=== PATIENT | male | born 1945 | race Caucasian/White ===

== ENCOUNTER 2020-05-30 16:22 | Inpatient (IN) | payer MEDICARE, OTHER ==
[~2020-05-30 16:22] MED LIST: Iopamidol 370 76% 100 ML VIAL ONE
[2020-05-30] MEDS ORDERED: Albuterol 200 PUFF (6.7GM INHALER) ONE (17:44)
[2020-05-30 17:56] LABS: #Lymphocytes 0.4 thou/uL (1.20-3.40); #Monocytes 0.4 thou/uL (0.11-0.59); #Neutrophils 8.6 thou/uL (1.40-6.50); %Basophils 0.1 % (0.0-1.0); %Eosinophils 0.1 % (0.0-10.0); %Lymphocytes 4.1 % (21.0-51.0); %Monocytes 3.9 % (0.0-10.0); %Neutrophils 91.8 % (42.0-75.0); Hemoglobin 14.4 g/dL (14.0-18.0); Mean Corpuscular Volume 97.1 fL (78.0-98.0); Mean Platelet Volume 7.9 fL (7.4-10.4); Platelet Count 223 thou/uL (130-400); RBC Distribution Width 13.2 % (11.5-14.5); Red Blood Cell (RBC) Count 4.49 mill/uL (4.70-6.10); White Blood Cell (WBC) Count 9.4 thou/uL (4.8-10.8)
[2020-05-30 18:18] LABS: ALT (SGPT) 43 U/L (8-55); AST (SGOT) 44 U/L (5-34); Albumin 3.9 g/dL (3.4-4.8); Alkaline Phosphatase 78 U/L (40-110); Anion Gap 19 mmol/L (10-20); BUN (Urea Nitrogen) 30 mg/dL (8.4-25.7); Bilirubin, Total 0.5 mg/dL (0.2-1.2); Calc. Creatinine Clearance 0 mL/min (70-130); Calcium 9.1 mg/dL (7.8-10.44); Carbon Dioxide 21 mmol/L (23-31); Chloride 103 mmol/L (98-107); Globulin 3.2 g/dL (2.4-3.5); Glucose 184 mg/dL (83-110); Potassium 3.8 mmol/L (3.5-5.1); Protein, Total 7.1 g/dL (5.8-8.1); Sodium 139 mmol/L (136-145)
--- NOTE | 2020-05-30 18:42 | RAD ---
PORTABLE UPRIGHT FRONTAL CHEST RADIOGRAPH: Date: 05-30-2020 Comparison: 12-24-14 History: Covid positive patient with difficulty breathing/shortness of breath. FINDINGS: There is no pneumothorax or pleural fluid. Heart and mediastinal contours are stable. There is new di ffuse interstitial opacity with superimposed ground glass opacity within the perihilar regions in bot h lung bases, consistent with the provided history of Covid pneumonia. IMPRESSION: Findings suspicious for bilateral Covid pneumonia. POS: TUSHAR
--- NOTE | 2020-05-30 21:38 | CT ---
CT PULMONARY ANGIOGRAM WITH IV CONTRAST AND 3D MIP RECONSTRUCTIONS: Date: 05-30-2020 PROVIDED CLINICAL HISTORY: Shortness of breath, Covid positive. FINDINGS: There is no evidence for central or segmental pulmonary embolus. Vascular calcification including cor onary calcium is demonstrated. There is a 3 cm right thyroid lobe hypodense nodule. There is extensive bilateral ground glass opacity with associated interstitial thickening, predominat imelda involving the left lung. There is no evidence for pleural fluid or pneumothorax. There is no evid ence for thoracic lymph node enlargement. The airway appears patent and of normal caliber. The visualized portions of the upper abdomen demonstrate no acute abnormality. The osseous structures demonstrate no concerning lytic or blastic lesions. IMPRESSION: 1. No evidence for central or segmental pulmonary embolus. 2. Pulmonary parenchymal findings typical but not specific for Covid pneumonia. 3. Right thyroid nodule, follow up ultrasound recommended. POS: JL
[2020-05-31] MEDS ORDERED: Ondansetron PF 4 MG/2 ML Vial IVP PRN (00:19)
[2020-05-31] MEDS ORDERED: Calcium Carbonate 500 MG ChewTAB PO PRN (00:19)
[2020-05-31] MEDS ORDERED: Acetaminophen 650 MG Suppository PR PRN (00:19)
[2020-05-31] MEDS ORDERED: Guaifenesin DM 100-10/5 ML UDCUP PO PRN (00:19)
[2020-05-31] MEDS ORDERED: Ondansetron ODT 4 MG TAB PO PRN (00:19)
--- NOTE | 2020-05-31 00:23 | PDOC.HHP ---
Hospitalist HPI - History of Present Illness dyspnea History of Present Illness: Case of an 74y/o male with a pmhx of htn who was diagnosed with covid 19 yesterday after a few days of symptoms, that comes to hospital today due to worsening symptoms. Patient states that he has had some non productive cough w ith some mild shortness of breath for the past 4 days. Patient states that his symptoms have worsened today. he check his oxygen saturations on his home pulse ox and found his saturation to be 89%, for which he decided to comes to hospital for evaluation. Hospitalist ROS - Review of Systems All other systems reviewed; all pertinent +/- noted in HPI/Subj Hospitalist History - Past Surgical History Past Surgical History: reports: Total Hip Replacement - Family History Family History: reports: no pertinent history - Social History Smoking Status: Current every day smoker Alcohol: reports: Occassional Drugs: reports: none Living Situation: With Family - Exam General Appearance: NAD, awake alert Eye: PERRL, anicteric sclera ENT: normocephalic atraumatic, no oropharyngeal lesions Neck: supple, symmetric, no JVD Heart: RRR, no murmur, no gallops Respiratory: CTAB, no wheezes, no rales, no ronchi, tachypneic Gastrointestinal: soft, non-tender, non-distended Extremities: no cyanosis, no clubbing, no edema Skin: normal turgor, no lesions, no rashes Neurological: cranial nerve grossly intact, normal sensation to touch, no weakness Musculoskeletal: normal tone, normal strength Psychiatric: normal affect, normal behavior, A&O x 3 Hospitalist Results - Labs Result Diagrams: 05/30/20 17:45 05/30/20 17:45 Lab results: WBC 9.4 thou/uL (4.8-10.8) 05/30/20 17:45 Hgb 14.4 g/dL (14.0-18.0) 05/30/20 17:45 Hct 43.6 % (42.0-52.0) 05/30/20 17:45 MCV 97.1 fL (78.0-98.0) 05/30/20 17:45 Plt Count 223 thou/uL (130-400) 05/30/20 17:45 Neutrophils % 91.8 % (42.0-75.0) H 05/30/20 17:45 Sodium 139 mmol/L (136-145) 05/30/20 17:45 Potassium 3.8 mmol/L (3.5-5.1) 05/30/20 17:45 Chloride 103 mmol/L (98-107) 05/30/20 17:45 Carbon Dioxide 21 mmol/L (23-31) L 05/30/20 17:45 BUN 30 mg/dL (8.4-25.7) H 05/30/20 17:45 Creatinine 1.15 mg/dL (0.7-1.3) 05/30/20 17:45 Glucose 184 mg/dL (83-110) H 05/30/20 17:45 Calcium 9.1 mg/dL (7.8-10.44) 05/30/20 17:45 Total Bilirubin 0.5 mg/dL (0.2-1.2) 05/30/20 17:45 AST 44 U/L (5-34) H 05/30/20 17:45 ALT 43 U/L (8-55) 05/30/20 17:45 Alkaline Phosphatase 78 U/L (40-110) 05/30/20 17:45 Troponin I Less than 0.010 ng/mL (< 0.028) 05/30/20 17:45 Serum Total Protein 7.1 g/dL (5.8-8.1) 05/30/20 17:45 Albumin 3.9 g/dL (3.4-4.8) 05/30/20 17:45 Hospitalist H&P A/P - Problem (1) Pneumonia due to COVID-19 virus Code(s): U07.1 - COVID-19; J12.89 - OTHER VIRAL PNEUMONIA Status: Acute (2) Acute respiratory failure Code(s): J96.00 - ACUTE RESPIRATORY FAILURE, UNSP W HYPOXIA OR HYPERCAPNIA Status: Acute (3) HTN (hypertension) Code(s): I10 - ESSENTIAL (PRIMARY) HYPERTENSION Status: Acute - Plan Plan: 74y/o male with the stated pmhx who presents with worsening covid 19 symptoms covid 19 pneumonia - cta + cxr consistent with covid 19 pnuemonia - positive test yesterday - will start decadron ivd - continue with vit c d and zinc - isolation protocol acute respi failure - likely secondary to above - 02 supplementation - wean as tolerated htn - continue home meds
[2020-05-31] MEDS ORDERED: Acetaminophen 325 MG TAB ONE (01:40)
[2020-05-31] MEDS: Acetaminophen 325 MG TAB PO PRN ×2 (01:44→08:59)
[2020-05-31 04:37] VITALS: BMI 34.2
[2020-05-31 07:52] LABS: Hemoglobin 13.9 g/dL (14.0-18.0); Mean Corpuscular HGB CONC 34.5 g/dL (32.0-36.0); Mean Corpuscular Hemoglobin 33.9 pg (27.0-31.0); Mean Corpuscular Volume 98.3 fL (78.0-98.0); Mean Platelet Volume 7.9 fL (7.4-10.4); Platelet Count 240 thou/uL (130-400); RBC Distribution Width 13.3 % (11.5-14.5); Red Blood Cell (RBC) Count 4.11 mill/uL (4.70-6.10); White Blood Cell (WBC) Count 10.3 thou/uL (4.8-10.8)
[2020-05-31 07:54] LABS: ALT (SGPT) 48 U/L (8-55); AST (SGOT) 44 U/L (5-34); Albumin 3.6 g/dL (3.4-4.8); Alkaline Phosphatase 72 U/L (40-110); Anion Gap 16 mmol/L (10-20); BUN (Urea Nitrogen) 25 mg/dL (8.4-25.7); Bilirubin, Total 0.6 mg/dL (0.2-1.2); Calc. Creatinine Clearance 97 mL/min (70-130); Calcium 9.3 mg/dL (7.8-10.44); Carbon Dioxide 25 mmol/L (23-31); Chloride 104 mmol/L (98-107); Globulin 3.7 g/dL (2.4-3.5); Glucose 158 mg/dL (83-110); Potassium 3.6 mmol/L (3.5-5.1); Protein, Total 7.3 g/dL (5.8-8.1); Sodium 141 mmol/L (136-145)
[2020-05-31] MEDS: Ascorbic Acid 500 mg Chewable Tablet PO SCH (08:46)
[2020-05-31] MEDS: Zinc Sulfate 220 MG CAP PO SCH (08:46)
[2020-05-31] MEDS: Dexamethasone 4 mg/ml Vial SLOW IVP SCH (08:46)
[2020-05-31] MEDS: Enoxaparin Sodium 40 MG/0.4 ML SYRINGE SC SCH (08:46)
[2020-05-31 09:08] LABS: Band 27 % (5-11); Lymphocytes 7 % (21-51); MDiff Complete? YES; Monocytes 1 % (0-10); Neutrophil 64 % (42-75); Platelet Morphology Comment Appears Adequate; RBC Morphology Normal; Reactive Lymphocytes 1 % (0-10)
[2020-05-31] MEDS: Cholecalciferol (Vitamin D3) 400 UNITS TAB PO SCH (11:22)
--- NOTE | 2020-05-31 16:53 | PDOC.HOSPP ---
- Subjective Encounter Date: 05/31/20 Encounter Time: 16:51 Subjective: Mr. Wiggins was seen today in follow-up of COVID pneumonia. He says he is breathing a little better. He says his symptoms have been present for about 11- 12 days, but got worse over the past 3 days. - Objective Vital Signs & Weight: Vital Signs (12 hours) Temp Pulse Resp BP BP Pulse Ox 05/31/20 12:00 98.2 F 87 22 H 125/73 91 L 05/31/20 08:59 100.9 F H 05/31/20 08:00 100.9 F H 89 24 H 164/79 H 92 L Weight Weight 260 lb Result Diagrams: 05/31/20 06:36 05/31/20 06:36 Hospitalist ROS - Medication Medications: Active Medications Generic Name Dose Route Start Last Admin Trade Name Freq PRN Reason Stop Dose Admin Acetaminophen 650 mg 05/31/20 00:19 05/31/20 08:59 Acetaminophen 325 Mg Tab PO 650 mg Q4H PRN Administration Headache/Fever/Mild Pain (1-3) Ascorbic Acid 1,000 mg 05/31/20 09:00 05/31/20 08:46 Ascorbic Acid 500 Mg Chewable Tablet PO 1,000 mg DAILY ADE Administration Cholecalciferol 400 units 05/31/20 09:00 05/31/20 11:22 Cholecalciferol (Vitamin D3) 400 Units Tab PO Not Given DAILY ADE Dexamethasone 6 mg 05/31/20 09:00 05/31/20 08:46 Dexamethasone 4 Mg/Ml Vial SLOW IVP 6 mg DAILY ADE Administration Enoxaparin Sodium 40 mg 05/31/20 09:00 05/31/20 08:46 Enoxaparin Sodium 40 Mg/0.4 Ml Syringe SC 40 mg 0900 ADE Administration Zinc Sulfate 220 mg 05/31/20 09:00 05/31/20 08:46 Zinc Sulfate 220 Mg Cap PO 220 mg DAILY ADE Administration - Exam Eye: PERRL, anicteric sclera Heart: RRR, no murmur, no gallops, no rubs, normal peripheral pulses Respiratory: no wheezes, no ronchi, rales (+ faint rales in the bases) Gastrointestinal: soft, non-tender, non-distended, normal bowel sounds, no palpable masses, no hepatomegaly Extremities: no cyanosis, no edema (+ good distal d.p. pulses bilaterally no lesions) Hosp A/P (1) Pneumonia due to COVID-19 virus Code(s): U07.1 - COVID-19; J12.89 - OTHER VIRAL PNEUMONIA Status: Acute (2) Acute respiratory failure with hypoxemia Code(s): J96.01 - ACUTE RESPIRATORY FAILURE WITH HYPOXIA Status: Acute (3) HTN (hypertension) Code(s): I10 - ESSENTIAL (PRIMARY) HYPERTENSION Status: Acute - Plan * Acute respiratory failure due to COVID- continue Decadron. He is out of the time window for Remdesivir * Consider Convalescent plasma should his condition worsen * Will monitor inflammatory markers * HTN- will re-start his home medications * DVT prophylaxis
[2020-05-31] MEDS: Carvedilol 25 MG TAB PO SCH (20:14)
[2020-06-01 07:56] LABS: Anion Gap 14 mmol/L (10-20); BUN (Urea Nitrogen) 23 mg/dL (8.4-25.7); CRP (Inflammatory) 18.71 mg/dL (= or < 0.5); Calc. Creatinine Clearance 125 mL/min (70-130); Calcium 8.5 mg/dL (7.8-10.44); Carbon Dioxide 24 mmol/L (23-31); Chloride 104 mmol/L (98-107); Glucose 132 mg/dL (83-110); Potassium 3.5 mmol/L (3.5-5.1); Sodium 138 mmol/L (136-145)
[2020-06-01 07:58] LABS: #Lymphocytes 0.3 thou/uL (1.20-3.40); #Monocytes 0.4 thou/uL (0.11-0.59); #Neutrophils 10.6 thou/uL (1.40-6.50); %Basophils 0.1 % (0.0-1.0); %Eosinophils 0.1 % (0.0-10.0); %Monocytes 3.6 % (0.0-10.0); %Neutrophils 93.2 % (42.0-75.0); Hemoglobin 12.1 g/dL (14.0-18.0); Mean Corpuscular HGB CONC 34.3 g/dL (32.0-36.0); Mean Corpuscular Hemoglobin 33.9 pg (27.0-31.0); Mean Corpuscular Volume 98.6 fL (78.0-98.0); Mean Platelet Volume 7.8 fL (7.4-10.4); Platelet Count 229 thou/uL (130-400); RBC Distribution Width 13.1 % (11.5-14.5); Red Blood Cell (RBC) Count 3.57 mill/uL (4.70-6.10); White Blood Cell (WBC) Count 11.4 thou/uL (4.8-10.8)
[2020-06-01] MEDS: Dexamethasone 4 mg/ml Vial SLOW IVP SCH (08:01)
[2020-06-01] MEDS: Enoxaparin Sodium 40 MG/0.4 ML SYRINGE SC SCH (08:01)
[2020-06-01] MEDS: Cholecalciferol (Vitamin D3) 400 UNITS TAB PO SCH (08:01)
[2020-06-01] MEDS: Aspirin 81 mg Enteric Coated Tablet PO SCH (08:01)
[2020-06-01] MEDS: Ascorbic Acid 500 mg Chewable Tablet PO SCH (08:01)
[2020-06-01] MEDS: Multivit, Therapeutic 1 TAB PO SCH (08:02)
[2020-06-01] MEDS: Carvedilol 25 MG TAB PO SCH ×2 (08:02→20:50)
[2020-06-01] MEDS: Zinc Sulfate 220 MG CAP PO SCH (08:02)
[2020-06-01] MEDS: Amlodipine 10 MG TAB PO SCH (08:02)
[2020-06-01] MEDS ORDERED: Non-Formulary Item 1 EACH (Lisinopril [Lisinopril] 40 MG Tablet) PO SCH (09:00)
[2020-06-01] MEDS: Lisinopril 20 MG TAB PO SCH (09:46)
--- NOTE | 2020-06-01 13:27 | PDOC.HOSPP ---
- Subjective Encounter Date: 06/01/20 Encounter Time: 13:25 Subjective: dry cough. on high flow O2. dyspneic with exertion - Objective Vital Signs & Weight: Vital Signs (12 hours) Temp Pulse Resp BP BP Pulse Ox 06/01/20 09:46 162/104 H 06/01/20 08:02 76 06/01/20 08:00 98.7 F 67 16 155/69 H 92 L 06/01/20 04:00 99.5 F 76 16 145/66 H 92 L 06/01/20 03:15 92 L Weight Weight 260 lb I&O: 05/31/20 06/01/20 06/02/20 06:59 06:59 06:59 Intake Total 800 480 Output Total 600 Balance 200 480 Result Diagrams: 06/01/20 07:13 06/01/20 07:13 Hospitalist ROS - Medication Medications: Active Medications Generic Name Dose Route Start Last Admin Trade Name Freq PRN Reason Stop Dose Admin Acetaminophen 650 mg 05/31/20 00:19 05/31/20 08:59 Acetaminophen 325 Mg Tab PO 650 mg Q4H PRN Administration Headache/Fever/Mild Pain (1-3) Amlodipine Besylate 10 mg 06/01/20 09:00 06/01/20 08:02 Amlodipine 10 Mg Tab PO 10 mg DAILY ADE Administration Ascorbic Acid 1,000 mg 05/31/20 09:00 06/01/20 08:01 Ascorbic Acid 500 Mg Chewable Tablet PO 1,000 mg DAILY ADE Administration Aspirin 81 mg 06/01/20 09:00 06/01/20 08:01 Aspirin 81 Mg Enteric Coated Tablet PO 81 mg DAILY ADE Administration Carvedilol 25 mg 05/31/20 21:00 06/01/20 08:02 Carvedilol 25 Mg Tab PO 25 mg BID ADE Administration Cholecalciferol 400 units 05/31/20 09:00 06/01/20 08:01 Cholecalciferol (Vitamin D3) 400 Units Tab PO 400 units DAILY ADE Administration Dexamethasone 6 mg 05/31/20 09:00 06/01/20 08:01 Dexamethasone 4 Mg/Ml Vial SLOW IVP 6 mg DAILY ADE Administration Enoxaparin Sodium 40 mg 05/31/20 09:00 06/01/20 08:01 Enoxaparin Sodium 40 Mg/0.4 Ml Syringe SC 40 mg 09 ADE Administration Lisinopril 40 mg 06/01/20 09:00 06/01/20 09:46 Lisinopril 20 Mg Tab PO 40 mg DAILY ADE Administration Multivitamins 1 tab 06/01/20 09:00 06/01/20 08:02 Multivit, Therapeutic 1 Tab PO 1 tab DAILY ADE Administration Ondansetron HCl 4 mg 05/31/20 00:19 06/01/20 00:32 Ondansetron Odt 4 Mg Tab PO 4 mg Q6H PRN Administration Nausea/Vomiting Zinc Sulfate 220 mg 05/31/20 09:00 06/01/20 08:02 Zinc Sulfate 220 Mg Cap PO 220 mg DAILY ADE Administration - Exam General Appearance: awake alert Neck: no JVD Heart: RRR, no murmur Respiratory - other findings: coarse BS. post rales Gastrointestinal: soft, non-tender, normal bowel sounds Extremities: no edema Hosp A/P (1) Pneumonia due to COVID-19 virus Code(s): U07.1 - COVID-19; J12.89 - OTHER VIRAL PNEUMONIA Status: Acute (2) Acute respiratory failure with hypoxemia Code(s): J96.01 - ACUTE RESPIRATORY FAILURE WITH HYPOXIA Status: Acute (3) HTN (hypertension) Code(s): I10 - ESSENTIAL (PRIMARY) HYPERTENSION Status: Acute Qualifiers: Hypertension type: essential hypertension Qualified Code(s): I10 - Essential (primary) hypertension - Plan cont iv decadron taper O2 as able cont loveox cont amlodipine, coreg
[2020-06-02] MEDS: Enoxaparin Sodium 40 MG/0.4 ML SYRINGE SC SCH (07:47)
[2020-06-02] MEDS: Zinc Sulfate 220 MG CAP PO SCH (07:47)
[2020-06-02] MEDS: Amlodipine 10 MG TAB PO SCH (07:47)
[2020-06-02] MEDS: Aspirin 81 mg Enteric Coated Tablet PO SCH (07:47)
[2020-06-02] MEDS: Cholecalciferol (Vitamin D3) 400 UNITS TAB PO SCH (07:47)
[2020-06-02] MEDS: Dexamethasone 4 mg/ml Vial SLOW IVP SCH (07:48)
[2020-06-02] MEDS: Ascorbic Acid 500 mg Chewable Tablet PO SCH (07:48)
[2020-06-02] MEDS: Carvedilol 25 MG TAB PO SCH ×2 (07:48→20:15)
[2020-06-02] MEDS: Multivit, Therapeutic 1 TAB PO SCH (07:48)
[2020-06-02] MEDS: Lisinopril 20 MG TAB PO SCH (07:48)
--- NOTE | 2020-06-02 09:46 | PDOC.HOSPP ---
- Subjective Encounter Date: 06/02/20 Encounter Time: 09:43 Subjective: sob , cough improved - Objective Vital Signs & Weight: Vital Signs (12 hours) Temp Pulse Resp BP BP BP Pulse Ox 06/02/20 08:00 98.0 F 61 20 138/66 92 L 06/02/20 07:48 162/104 H 06/02/20 07:47 56 L 06/02/20 04:00 98.1 F 56 L 28 H 143/72 H 93 L 06/02/20 00:29 92 L Weight Weight 260 lb I&O: 06/01/20 06/02/20 06/03/20 06:59 06:59 06:59 Intake Total 800 720 240 Output Total 600 Balance 200 720 240 Result Diagrams: 06/01/20 07:13 06/01/20 07:13 Hospitalist ROS - Medication Medications: Active Medications Generic Name Dose Route Start Last Admin Trade Name Freq PRN Reason Stop Dose Admin Acetaminophen 650 mg 05/31/20 00:19 05/31/20 08:59 Acetaminophen 325 Mg Tab PO 650 mg Q4H PRN Administration Headache/Fever/Mild Pain (1-3) Amlodipine Besylate 10 mg 06/01/20 09:00 06/02/20 07:47 Amlodipine 10 Mg Tab PO 10 mg DAILY ADE Administration Ascorbic Acid 1,000 mg 05/31/20 09:00 06/02/20 07:48 Ascorbic Acid 500 Mg Chewable Tablet PO 1,000 mg DAILY ADE Administration Aspirin 81 mg 06/01/20 09:00 06/02/20 07:47 Aspirin 81 Mg Enteric Coated Tablet PO 81 mg DAILY ADE Administration Carvedilol 25 mg 05/31/20 21:00 06/02/20 07:48 Carvedilol 25 Mg Tab PO 25 mg BID ADE Administration Cholecalciferol 400 units 05/31/20 09:00 06/02/20 07:47 Cholecalciferol (Vitamin D3) 400 Units Tab PO 400 units DAILY ADE Administration Dexamethasone 6 mg 05/31/20 09:00 06/02/20 07:48 Dexamethasone 4 Mg/Ml Vial SLOW IVP 6 mg DAILY ADE Administration Enoxaparin Sodium 40 mg 05/31/20 09:00 06/02/20 07:47 Enoxaparin Sodium 40 Mg/0.4 Ml Syringe SC 40 mg 09 ADE Administration Lisinopril 40 mg 06/01/20 09:00 06/02/20 07:48 Lisinopril 20 Mg Tab PO 40 mg DAILY ADE Administration Multivitamins 1 tab 06/01/20 09:00 06/02/20 07:48 Multivit, Therapeutic 1 Tab PO 1 tab DAILY ADE Administration Ondansetron HCl 4 mg 05/31/20 00:19 06/01/20 00:32 Ondansetron Odt 4 Mg Tab PO 4 mg Q6H PRN Administration Nausea/Vomiting Zinc Sulfate 220 mg 05/31/20 09:00 06/02/20 07:47 Zinc Sulfate 220 Mg Cap PO 220 mg DAILY ADE Administration - Exam General Appearance: awake alert Neck: no JVD Heart: RRR, no murmur Respiratory - other findings: good ant BS, post rales Gastrointestinal: soft, normal bowel sounds Extremities: no edema Hosp A/P (1) Pneumonia due to COVID-19 virus Code(s): U07.1 - COVID-19; J12.89 - OTHER VIRAL PNEUMONIA Status: Acute (2) Acute respiratory failure with hypoxemia Code(s): J96.01 - ACUTE RESPIRATORY FAILURE WITH HYPOXIA Status: Acute (3) HTN (hypertension) Code(s): I10 - ESSENTIAL (PRIMARY) HYPERTENSION Status: Acute Qualifiers: Hypertension type: essential hypertension Qualified Code(s): I10 - Essential (primary) hypertension - Plan cont iv decadron taper O2 as able. still requiring high flow O2 cont loveox cont amlodipine, coreg
[2020-06-02] MEDS: Acetaminophen 325 MG TAB PO PRN (14:42)
[2020-06-03] MEDS: Amlodipine 10 MG TAB PO SCH (07:49)
[2020-06-03] MEDS: Aspirin 81 mg Enteric Coated Tablet PO SCH (07:49)
[2020-06-03] MEDS: Carvedilol 25 MG TAB PO SCH ×2 (07:49→20:26)
[2020-06-03] MEDS: Cholecalciferol (Vitamin D3) 400 UNITS TAB PO SCH (07:49)
[2020-06-03] MEDS: Lisinopril 20 MG TAB PO SCH (07:50)
[2020-06-03] MEDS: Zinc Sulfate 220 MG CAP PO SCH (07:50)
[2020-06-03] MEDS: Ascorbic Acid 500 mg Chewable Tablet PO SCH (07:50)
[2020-06-03] MEDS: Dexamethasone 4 mg/ml Vial SLOW IVP SCH (07:51)
[2020-06-03] MEDS: Multivit, Therapeutic 1 TAB PO SCH (07:51)
[2020-06-03] MEDS: Enoxaparin Sodium 40 MG/0.4 ML SYRINGE SC SCH (07:54)
[2020-06-03] MEDS ORDERED: Azithromycin 250 MG TAB PO SCH (11:30)
--- NOTE | 2020-06-03 11:35 | PDOC.HOSPP ---
- Subjective Encounter Date: 06/03/20 Encounter Time: 11:23 Subjective: cough, yellow sputum, strings of blood. ne fever, chills - Objective Vital Signs & Weight: Vital Signs (12 hours) Temp Pulse Resp BP BP BP Pulse Ox 06/03/20 08:00 98.4 F 61 20 158/72 H 92 L 06/03/20 07:50 162/104 H 06/03/20 07:49 50 L 06/03/20 04:00 97.6 F 50 L 20 124/57 L 93 L 06/03/20 00:00 97.7 F 50 L 22 H 158/80 H 90 L Weight Weight 260 lb I&O: 06/02/20 06/03/20 06/04/20 06:59 06:59 06:59 Intake Total 720 1720 240 Output Total 900 Balance 720 820 240 Result Diagrams: 06/01/20 07:13 06/01/20 07:13 Hospitalist ROS - Medication Medications: Active Medications Generic Name Dose Route Start Last Admin Trade Name Freq PRN Reason Stop Dose Admin Acetaminophen 650 mg 05/31/20 00:19 06/02/20 14:42 Acetaminophen 325 Mg Tab PO 650 mg Q4H PRN Administration Headache/Fever/Mild Pain (1-3) Amlodipine Besylate 10 mg 06/01/20 09:00 06/03/20 07:49 Amlodipine 10 Mg Tab PO 10 mg DAILY ADE Administration Ascorbic Acid 1,000 mg 05/31/20 09:00 06/03/20 07:50 Ascorbic Acid 500 Mg Chewable Tablet PO 1,000 mg DAILY ADE Administration Aspirin 81 mg 06/01/20 09:00 06/03/20 07:49 Aspirin 81 Mg Enteric Coated Tablet PO 81 mg DAILY ADE Administration Calcium Carbonate 1,000 mg 05/31/20 00:19 06/02/20 20:15 Calcium Carbonate 500 Mg Chewtab PO 1,000 mg Q4H PRN Administration Heartburn or Indigestion Carvedilol 25 mg 05/31/20 21:00 06/03/20 07:49 Carvedilol 25 Mg Tab PO 25 mg BID ADE Administration Cholecalciferol 400 units 05/31/20 09:00 06/03/20 07:49 Cholecalciferol (Vitamin D3) 400 Units Tab PO 400 units DAILY ADE Administration Dexamethasone 6 mg 05/31/20 09:00 06/03/20 07:51 Dexamethasone 4 Mg/Ml Vial SLOW IVP 6 mg DAILY ADE Administration Enoxaparin Sodium 40 mg 05/31/20 09:00 06/03/20 07:54 Enoxaparin Sodium 40 Mg/0.4 Ml Syringe SC 40 mg 0900 ADE Administration Lisinopril 40 mg 06/01/20 09:00 06/03/20 07:50 Lisinopril 20 Mg Tab PO 40 mg DAILY ADE Administration Multivitamins 1 tab 06/01/20 09:00 06/03/20 07:51 Multivit, Therapeutic 1 Tab PO 1 tab DAILY ADE Administration Ondansetron HCl 4 mg 05/31/20 00:19 06/01/20 00:32 Ondansetron Odt 4 Mg Tab PO 4 mg Q6H PRN Administration Nausea/Vomiting Zinc Sulfate 220 mg 05/31/20 09:00 06/03/20 07:50 Zinc Sulfate 220 Mg Cap PO 220 mg DAILY ADE Administration - Exam General Appearance: awake alert Neck: no JVD Heart: RRR, no murmur Respiratory - other findings: fine rales bilat Gastrointestinal: soft, normal bowel sounds Extremities: no edema Hosp A/P (1) Pneumonia due to COVID-19 virus Code(s): U07.1 - COVID-19; J12.89 - OTHER VIRAL PNEUMONIA Status: Acute (2) Acute respiratory failure with hypoxemia Code(s): J96.01 - ACUTE RESPIRATORY FAILURE WITH HYPOXIA Status: Acute (3) HTN (hypertension) Code(s): I10 - ESSENTIAL (PRIMARY) HYPERTENSION Status: Acute Qualifiers: Hypertension type: essential hypertension Qualified Code(s): I10 - Essential (primary) hypertension - Plan 1. covid-cont iv decadron, lovenox 2. acute resp failure-taper O2 as able. still requiring high flow O2 3. cont amlodipine, coreg 4. add zithromax, tessalom 5. CBC, BMP
[2020-06-03] MEDS: Benzonatate 100 MG CAP PO SCH ×2 (15:07→20:26)
[2020-06-03 16:41] LABS: Anion Gap 16 mmol/L (10-20); BUN (Urea Nitrogen) 34 mg/dL (8.4-25.7); Calc. Creatinine Clearance 107 mL/min (70-130); Calcium 9.1 mg/dL (7.8-10.44); Carbon Dioxide 23 mmol/L (23-31); Chloride 104 mmol/L (98-107); Glucose 284 mg/dL (83-110); Potassium 4.3 mmol/L (3.5-5.1); Sodium 139 mmol/L (136-145)
[2020-06-03 16:50] LABS: Band 44 % (5-11); Hemoglobin 13.9 g/dL (14.0-18.0); Lymphocytes 2 % (21-51); MDiff Complete? YES; Mean Corpuscular HGB CONC 33.5 g/dL (32.0-36.0); Mean Corpuscular Hemoglobin 32.7 pg (27.0-31.0); Mean Corpuscular Volume 97.8 fL (78.0-98.0); Mean Platelet Volume 8.2 fL (7.4-10.4); Monocytes 2 % (0-10); Neutrophil 52 % (42-75); Platelet Count 340 thou/uL (130-400); Platelet Morphology Comment Appears Adequate; RBC Distribution Width 13.1 % (11.5-14.5); RBC Morphology Normal; Red Blood Cell (RBC) Count 4.25 mill/uL (4.70-6.10); White Blood Cell (WBC) Count 9.8 thou/uL (4.8-10.8)
[2020-06-03] MEDS: Acetaminophen 325 MG TAB PO PRN (20:43)
[2020-06-04] MEDS: Enoxaparin Sodium 40 MG/0.4 ML SYRINGE SC SCH (08:35)
[2020-06-04] MEDS: Benzonatate 100 MG CAP PO SCH ×3 (08:36→19:37)
[2020-06-04] MEDS: Ascorbic Acid 500 mg Chewable Tablet PO SCH (08:36)
[2020-06-04] MEDS: Aspirin 81 mg Enteric Coated Tablet PO SCH (08:36)
[2020-06-04] MEDS: Cholecalciferol (Vitamin D3) 400 UNITS TAB PO SCH (08:36)
[2020-06-04] MEDS: Carvedilol 25 MG TAB PO SCH ×2 (08:36→19:37)
[2020-06-04] MEDS: Zinc Sulfate 220 MG CAP PO SCH (08:36)
[2020-06-04] MEDS: Multivit, Therapeutic 1 TAB PO SCH (08:36)
[2020-06-04] MEDS: Amlodipine 10 MG TAB PO SCH (08:37)
[2020-06-04] MEDS: Lisinopril 20 MG TAB PO SCH (08:37)
[2020-06-04] MEDS: Dexamethasone 4 mg/ml Vial SLOW IVP SCH (08:39)
--- NOTE | 2020-06-04 10:14 | PDOC.HOSPP ---
- Subjective Encounter Date: 06/04/20 Encounter Time: 10:12 Subjective: Patient reports he is feeling the same as yesterday, no significant improvement with his breathing but no worsening. States he feels his nose/head are stuffed. Denies any chest pain. Occasional cough. Denies any fevers. No issues overnight. - Objective Vital Signs & Weight: Vital Signs (12 hours) Temp Pulse Resp BP BP Pulse Ox 06/04/20 08:00 98.0 F 53 L 20 157/71 H 93 L 06/04/20 03:52 97.7 F 51 L 18 155/75 H 94 L 06/04/20 00:03 90 L 06/04/20 00:00 97.9 F 75 20 124/62 94 L Weight Weight 260 lb I&O: 06/03/20 06/04/20 06/05/20 06:59 06:59 06:59 Intake Total 1720 1720 Output Total 900 750 Balance 820 970 Result Diagrams: 06/03/20 16:11 06/03/20 16:11 Hospitalist ROS - Review of Systems Constitutional: denies: fever, chills, sweats, weakness, malaise, other Eyes: denies: pain, vision change, conjunctivae inflammation, eyelid inflammation, redness, other ENT: reports: nose congestion Respiratory: reports: cough, shortness of breath. denies: dry, hemoptysis, SOB with excertion, pleuritic pain, sputum, wheezing, other Cardiovascular: denies: chest pain, palpitations, orthopnea, paroxysmal noc. dyspnea, edema, light headedness, other Gastrointestinal: denies: nausea, vomiting, abdominal pain, diarrhea, constipation, melena, hematochezia, other Genitourinary: denies: dysuria, frequency, incontinence, hematuria, retention, other Musculoskeletal: denies: neck pain, shoulder pain, arm pain, back pain, hand pain, leg pain, foot pain, other Skin: denies: rash, lesions, doreen, bruising, other Neurological: denies: weakness, numbness, incoordination, change in speech, confusion, seizures, other - Medication Medications: Active Medications Generic Name Dose Route Start Last Admin Trade Name Freq PRN Reason Stop Dose Admin Acetaminophen 650 mg 05/31/20 00:19 06/03/20 20:43 Acetaminophen 325 Mg Tab PO 650 mg Q4H PRN Administration Headache/Fever/Mild Pain (1-3) Amlodipine Besylate 10 mg 06/01/20 09:00 06/04/20 08:37 Amlodipine 10 Mg Tab PO 10 mg DAILY [facility] Administration Ascorbic Acid 1,000 mg 05/31/20 09:00 06/04/20 08:36 Ascorbic Acid 500 Mg Chewable Tablet PO 1,000 mg DAILY [facility] Administration Aspirin 81 mg 06/01/20 09:00 06/04/20 08:36 Aspirin 81 Mg Enteric Coated Tablet PO 81 mg DAILY [facility] Administration Benzonatate 100 mg 06/03/20 15:00 06/04/20 08:36 Benzonatate 100 Mg Cap PO 100 mg TID [facility] Administration Calcium Carbonate 1,000 mg 05/31/20 00:19 06/02/20 20:15 Calcium Carbonate 500 Mg Chewtab PO 1,000 mg Q4H PRN Administration Heartburn or Indigestion Carvedilol 25 mg 05/31/20 21:00 06/04/20 08:36 Carvedilol 25 Mg Tab PO 25 mg BID [facility] Administration Cholecalciferol 400 units 05/31/20 09:00 06/04/20 08:36 Cholecalciferol (Vitamin D3) 400 Units Tab PO 400 units DAILY [facility] Administration Dexamethasone 6 mg 05/31/20 09:00 06/04/20 08:39 Dexamethasone 4 Mg/Ml Vial SLOW IVP 6 mg DAILY [facility] Administration Enoxaparin Sodium 40 mg 05/31/20 09:00 06/04/20 08:35 Enoxaparin Sodium 40 Mg/0.4 Ml Syringe SC 40 mg 09 [facility] Administration Lisinopril 40 mg 06/01/20 09:00 06/04/20 08:37 Lisinopril 20 Mg Tab PO 40 mg DAILY [facility] Administration Multivitamins 1 tab 06/01/20 09:00 06/04/20 08:36 Multivit, Therapeutic 1 Tab PO 1 tab DAILY [facility] Administration Ondansetron HCl 4 mg 05/31/20 00:19 06/01/20 00:32 Ondansetron Odt 4 Mg Tab PO 4 mg Q6H PRN Administration Nausea/Vomiting Zinc Sulfate 220 mg 05/31/20 09:00 06/04/20 08:36 Zinc Sulfate 220 Mg Cap PO 220 mg DAILY [facility] Administration - Exam General Appearance: NAD, awake alert Eye: PERRL, anicteric sclera ENT: normocephalic atraumatic, no oropharyngeal lesions, moist mucosa Neck: supple, symmetric, no lymphadenopathy Heart: RRR, normal peripheral pulses Respiratory: CTAB, no wheezes, no rales, no ronchi, normal chest expansion Gastrointestinal: soft (obese), non-tender, non-distended, normal bowel sounds Extremities: no edema Skin: no lesions, no rashes Neurological: cranial nerve grossly intact Musculoskeletal: normal tone, normal strength, no muscle wasting Psychiatric: normal affect, normal behavior, A&O x 3 Hosp A/P (1) Obesity Code(s): E66.9 - OBESITY, UNSPECIFIED Status: Acute (2) Acute respiratory failure with hypoxemia Code(s): J96.01 - ACUTE RESPIRATORY FAILURE WITH HYPOXIA Status: Acute (3) HTN (hypertension) Code(s): I10 - ESSENTIAL (PRIMARY) HYPERTENSION Status: Chronic Qualifiers: Hypertension type: essential hypertension Qualified Code(s): I10 - Essential (primary) hypertension (4) Pneumonia due to COVID-19 virus Code(s): U07.1 - COVID-19; J12.89 - OTHER VIRAL PNEUMONIA Status: Chronic - Plan COVID Pneumonia: Continue IV steroids, vitamin C and zinc Monitor inflammatory markers (CRP down trending, D-Dimer increased) s/p CTA done 05/30/2020 showing no PE, has been on Enoxaparin 40 mg SC daily for DVT Prophylaxis No chest pain or tachycardia. No indication to repeat CTA at present. Obtain venous doppler if negative, will place on mechanical SCDs Continue to monitor O2 sats If any worsening, repeat CXR to reassess BNP and lactic acid added on to labs Acute respiratory failure with hypoxemia requiring O2 supplementation via high flow secondary to COVID pneumonia wean as tolerated Repeat ABG given short of breath while speaking and sats of 91-92% Right Thyroid Nodule: Incidental finding on CTA chest Follow-up US which can be done as outpatient DVT Prophylaxis: Continue Lovenox GI Prophylaxis: Famotidine CODE STATUS: FULL
[2020-06-04] MEDS ORDERED: Sodium Chloride 0.65% Nasal 44 ML BOT EA NARE PRN (10:23)
--- NOTE | 2020-06-04 11:10 | ULT ---
Venous duplex sonogram bilateral lower extremity HISTORY: Bilateral leg pain and edema. FINDINGS: Each common femoral vein and greater saphenous junction were evaluated along with each femo ral, deep femoral, popliteal, and posterior tibial vein. There is good color and spectral Doppler flow, compression, and augmentation. IMPRESSION : Normal exam.
[2020-06-04 11:14] LABS: #Lymphocytes 0.3 thou/uL (1.20-3.40); #Monocytes 0.5 thou/uL (0.11-0.59); #Neutrophils 11.7 thou/uL (1.40-6.50); %Eosinophils 0.2 % (0.0-10.0); %Lymphocytes 2.7 % (21.0-51.0); %Monocytes 4.3 % (0.0-10.0); %Neutrophils 92.9 % (42.0-75.0); Hemoglobin 13.5 g/dL (14.0-18.0); Mean Corpuscular HGB CONC 36.1 g/dL (32.0-36.0); Mean Corpuscular Hemoglobin 35.4 pg (27.0-31.0); Mean Platelet Volume 6.1 fL (7.4-10.4); Platelet Count 284 thou/uL (130-400); RBC Distribution Width 13.2 % (11.5-14.5); White Blood Cell (WBC) Count 12.5 thou/uL (4.8-10.8)
[2020-06-04 11:30] LABS: Lactic Acid 1.6 mmol/L (0.5-2.2)
[2020-06-04 11:34] LABS: Anion Gap 12 mmol/L (10-20); BUN (Urea Nitrogen) 30 mg/dL (8.4-25.7); Calc. Creatinine Clearance 139 mL/min (70-130); Calcium 8.8 mg/dL (7.8-10.44); Carbon Dioxide 26 mmol/L (23-31); Chloride 107 mmol/L (98-107); Glucose 149 mg/dL (83-110); Magnesium 2.1 mg/dL (1.6-2.6); Potassium 4.2 mmol/L (3.5-5.1); Sodium 141 mmol/L (136-145)
[2020-06-04 11:52] LABS: Actual Bicarbonate (HCO3a) 26.2 mEq/L (22-28); Base Excess (BEa) 2.9 mEq/L (-2.0 to +3.0); CO2 Tension 35.9 mmHg (35.0-45.0); Calcium, Ionized (arterial) 1.22 mmol/L (1.12-1.30); Carboxyhemoglobin (COHb) 0.8 gm% (0.0-3.0); Hemoglobin (Hb) 13.2 g/dL (14.0-18.0); Potassium - ABG Lab 4.27 mmol/L (3.70-5.30); pH, Arterial 7.48 (7.35-7.45)
[2020-06-04 12:17] LABS: ALV-art Gradient 543.625 mmHg (0-20); O2 Tension (PaO2), arterial 53.2 mmHg (> 70.0); Puncture Site RBA
[2020-06-04] MEDS: Azithromycin 500 MG in Sodium Chloride 0.9% 250 ML 250 ML IVPB SCH (12:43)
[2020-06-04] MEDS ORDERED: Albuterol Sulfate 2.5 mg/3 ml Neb NEB PRN (13:57)
[2020-06-04] MEDS ORDERED: Albuterol 200 PUFF (6.7GM INHALER) INH PRN (14:00)
--- NOTE | 2020-06-04 14:39 | RAD ---
Chest one view HISTORY: Hypoxia. COMPARISON: 05/22/2020. FINDINGS: Cardiac silhouette is magnified by projection. Ill-defined patchy areas of groundglass pare nchymal infiltrate projecting throughout each lung have increased slightly in density. No lobar consolidation or evidence of pneumothorax. Tiny metallic fragment over the right axilla again demonstrated. IMPRESSION : Slight interval radiographic progression of patchy bilateral infiltrates.
--- NOTE | 2020-06-04 16:38 | EKG ---
Test Reason : Blood Pressure : / mmHG Vent. Rate : 071 BPM Atrial Rate : 071 BPM P-R Int : 182 ms QRS Dur : 102 ms QT Int : 412 ms P-R-T Axes : 099 -07 022 degrees QTc Int : 447 ms Normal sinus rhythm Normal ECG Confirmed by THONG NAILS M.D. ([id number]), editor book DANIELLE WONG ([id number]) on 06/04/2020 4:38:42 PM Referred By: Confirmed By:THONG NAILS M.D.
[2020-06-04] MEDS: Famotidine 20 MG TAB PO SCH (19:37)
[2020-06-05 05:34] LABS: #Eosinphils 0.1 thou/uL (0.0-0.7); #Lymphocytes 0.4 thou/uL (1.20-3.40); #Monocytes 0.4 thou/uL (0.11-0.59); #Neutrophils 10.9 thou/uL (1.40-6.50); %Eosinophils 0.5 % (0.0-10.0); %Lymphocytes 3.7 % (21.0-51.0); %Monocytes 3.6 % (0.0-10.0); %Neutrophils 92.2 % (42.0-75.0); Hemoglobin 13.4 g/dL (14.0-18.0); Mean Corpuscular HGB CONC 31.6 g/dL (32.0-36.0); Mean Corpuscular Hemoglobin 30.9 pg (27.0-31.0); Mean Corpuscular Volume 97.7 fL (78.0-98.0); Mean Platelet Volume 7.9 fL (7.4-10.4); Platelet Count 359 thou/uL (130-400); Red Blood Cell (RBC) Count 4.32 mill/uL (4.70-6.10); White Blood Cell (WBC) Count 11.8 thou/uL (4.8-10.8)
[2020-06-05 05:53] LABS: Lactic Acid 2.1 mmol/L (0.5-2.2)
[2020-06-05 05:56] LABS: ALT (SGPT) 30 U/L (8-55); AST (SGOT) 18 U/L (5-34); Alkaline Phosphatase 84 U/L (40-110); Anion Gap 15 mmol/L (10-20); BUN (Urea Nitrogen) 26 mg/dL (8.4-25.7); Bilirubin, Direct 0.2 mg/dL (0.1-0.3); Bilirubin, Total 0.5 mg/dL (0.2-1.2); CRP (Inflammatory) 3.65 mg/dL (= or < 0.5); Calc. Creatinine Clearance 141 mL/min (70-130); Calcium 8.8 mg/dL (7.8-10.44); Carbon Dioxide 24 mmol/L (23-31); Chloride 107 mmol/L (98-107); Glucose 143 mg/dL (83-110); Magnesium 2.1 mg/dL (1.6-2.6); Potassium 4.5 mmol/L (3.5-5.1); Protein, Total 6.4 g/dL (5.8-8.1); Sodium 141 mmol/L (136-145)
[2020-06-05] MEDS: Dexamethasone 4 mg/ml Vial SLOW IVP SCH ×2 (08:38→19:55)
[2020-06-05] MEDS: Lisinopril 20 MG TAB PO SCH (08:39)
[2020-06-05] MEDS: Aspirin 81 mg Enteric Coated Tablet PO SCH (08:40)
[2020-06-05] MEDS: Amlodipine 10 MG TAB PO SCH (08:40)
[2020-06-05] MEDS: Ascorbic Acid 500 mg Chewable Tablet PO SCH (08:40)
[2020-06-05] MEDS: Carvedilol 25 MG TAB PO SCH ×2 (08:40→19:55)
[2020-06-05] MEDS: Famotidine 20 MG TAB PO SCH ×2 (08:40→19:57)
[2020-06-05] MEDS: Zinc Sulfate 220 MG CAP PO SCH (08:40)
[2020-06-05] MEDS: Benzonatate 100 MG CAP PO SCH ×3 (08:40→19:55)
[2020-06-05] MEDS: Cholecalciferol (Vitamin D3) 400 UNITS TAB PO SCH (08:40)
[2020-06-05] MEDS: Multivit, Therapeutic 1 TAB PO SCH (08:40)
[2020-06-05] MEDS: Enoxaparin Sodium 40 MG/0.4 ML SYRINGE SC SCH ×2 (08:41→19:57)
[2020-06-05] MEDS: Acetaminophen 325 MG TAB PO PRN (08:45)
[2020-06-05] MEDS: Azithromycin 500 MG in Sodium Chloride 0.9% 250 ML 250 ML IVPB SCH (12:25)
--- NOTE | 2020-06-05 12:41 | CON ---
DATE OF CONSULTATION: HISTORY OF PRESENT ILLNESS: Kenny Wiggins is a 74-year-old male, who has been in the hospital here since 05/30/2020. We were consulted the patient as of yesterday regarding his, apparently, pulmonary status. He has known history of galvin positive, unclear how long he has been positive, but at the time when he arrived in the ER, he was having symptoms of shortness of breath and cough 4 days prior date of admission in the ER as noted May 30. His sats were 86% on room air, blood pressure 184/94, temperature 97 in the ER, he has been on high-flow ever since then. PAST MEDICAL HISTORY: Tobacco abuse a pack a day and hypertension. PREVIOUS SURGERIES: Left hip surgeries, aneurysm surgery apparently, unknown where. CHRONIC MEDICATIONS FROM HOME: 1. Lisinopril 40. 2. Coreg 25 b.i.d. 3. Aspirin. 4. Amlodipine 10. ALLERGIES: CODEINE. REVIEW OF SYSTEMS: Negative. PHYSICAL EXAMINATION: VITAL SIGNS: Temperature 97, pulse 52, respiratory rate 20, sats are 96% on flow rate of 50, 80% FiO2, blood pressure 168/71. CHEST: No wheezing. No crackles. CARDIAC: Normal S1, S2. ABDOMEN: No masses. LABORATORY DATA: White count 11,000, H and H 13 and 42, and platelets 359. PO2 of 53 yesterday, pCO2 of 35, pH 7.48, on high-flow. Lytes are normal. X-ray taken today, shows right-sided infiltrate. Venogram was negative. ASSESSMENT AND PLAN: Morbid obesity, galvin positive pneumonia, respiratory failure. I have added doxycycline, Decadron to present regime. Increase his Lovenox to twice a day. May want to consider getting Infectious Disease to see the patient whether he has any additional suggestion. He may be too far gone to receive any meaningful treatment either remdesivir or plasma. Job ID: [id number]
--- NOTE | 2020-06-05 15:25 | PDOC.HOSPP ---
- Subjective Subjective: Assuming care: Patient was seen examined at bedside. Follow-up Covid pneumonia. Patient reported that his breathing much improved today. He is oxygen requirement has decreased from the rate of 60, FiO2 of 90%, today he went down to 50/81. Patient was seen by pulmonology, his Decadron has been increased to twice daily, and also added doxycycline. I have updated his on the phone with regard to his condition. - Objective Vital Signs & Weight: Vital Signs (12 hours) Temp Pulse Resp BP Pulse Ox 06/05/20 15:01 99 06/05/20 12:00 94 L 06/05/20 08:00 97.9 F 52 L 20 168/71 H 96 06/05/20 04:45 56 L 22 H 95 Weight Weight 260 lb I&O: 06/04/20 06/05/20 06/06/20 06:59 06:59 06:59 Intake Total 1720 1740 Output Total 750 1475 Balance 970 265 Result Diagrams: 06/05/20 05:24 06/05/20 05:23 Radiology Reviewed by me: Yes EKG Reviewed by me: Yes Hospitalist ROS - Medication Medications: Active Medications Generic Name Dose Route Start Last Admin Trade Name Freq PRN Reason Stop Dose Admin Acetaminophen 650 mg 05/31/20 00:19 06/05/20 08:45 Acetaminophen 325 Mg Tab PO 650 mg Q4H PRN Administration Headache/Fever/Mild Pain (1-3) Amlodipine Besylate 10 mg 06/01/20 09:00 06/05/20 08:40 Amlodipine 10 Mg Tab PO 10 mg DAILY ADE Administration Ascorbic Acid 1,000 mg 05/31/20 09:00 06/05/20 08:40 Ascorbic Acid 500 Mg Chewable Tablet PO 1,000 mg DAILY ADE Administration Aspirin 81 mg 06/01/20 09:00 06/05/20 08:40 Aspirin 81 Mg Enteric Coated Tablet PO 81 mg DAILY ADE Administration Benzonatate 100 mg 06/03/20 15:00 06/05/20 15:16 Benzonatate 100 Mg Cap PO 100 mg TID ADE Administration Calcium Carbonate 1,000 mg 05/31/20 00:19 06/02/20 20:15 Calcium Carbonate 500 Mg Chewtab PO 1,000 mg Q4H PRN Administration Heartburn or Indigestion Carvedilol 25 mg 05/31/20 21:00 06/05/20 08:40 Carvedilol 25 Mg Tab PO 25 mg BID ADE Administration Cholecalciferol 400 units 05/31/20 09:00 06/05/20 08:40 Cholecalciferol (Vitamin D3) 400 Units Tab PO 400 units DAILY ADE Administration Famotidine 20 mg 06/04/20 21:00 06/05/20 08:40 Famotidine 20 Mg Tab PO 20 mg BID ADE Administration Lisinopril 40 mg 06/01/20 09:00 06/05/20 08:39 Lisinopril 20 Mg Tab PO 40 mg DAILY ADE Administration Multivitamins 1 tab 06/01/20 09:00 06/05/20 08:40 Multivit, Therapeutic 1 Tab PO 1 tab DAILY ADE Administration Zinc Sulfate 220 mg 05/31/20 09:00 06/05/20 08:40 Zinc Sulfate 220 Mg Cap PO 220 mg DAILY ADE Administration - Exam General Appearance: NAD Eye: PERRL ENT: normocephalic atraumatic Neck: supple Heart: RRR Respiratory: no wheezes, rhonchi Extremities: no cyanosis Skin: normal turgor Neurological: cranial nerve grossly intact Musculoskeletal: normal tone Psychiatric: normal affect, normal behavior, A&O x 3 Hosp A/P - Plan Patient is a pleasant 74 years old gentleman who has significant past medical history of hypertension, who was tested positive for Covid 19 on 05/29/2020, which was few days after onset of symptoms. Acute hypoxic respiratory failure secondary to COVID-19 pneumonia --Patient remains on high flow, able to wean off some today --Patient was out of window for remdesivir/convalescent plasma given onset of sy mptoms. Decadron has been increased to twice daily by pulmonology. Continue vitamin C/D/zinc --Doxy added by pulmonology --cont supportive cares. ID consult COVID-19 pneumonia --Management as above. Wean O2 as tolerated Hypertension, essential --BP stable continue home meds Right Thyroid Nodule: Incidental finding on CTA chest --Follow-up US which can be done as outpatient DVT ppx: Lovenox GI ppx: Pepcid Code Status: Full code Anticipated Dispo: Home when medically stable
--- NOTE | 2020-06-05 19:37 | CON ---
DATE OF CONSULTATION: 06/05/2020 REASON FOR CONSULTATION: COVID pneumonia. HISTORY OF PRESENT ILLNESS: A 74-year-old, whom I had seen many years ago for left hip infection. He has had now COVID pneumonia for about 2 weeks. His had it too, but did not get as sick as he did. He waited until the and had to be admitted because of worsening hypoxemia. He has been started on Decadron, DVT prophylaxis. He was also placed on azithromycin, doxy, mometasone. He is currently sitting by the bedside. He has high-flow nasal cannula O2 now down to 50 high-flow. Appears oriented. He does not appear in distress. No headaches. Coughing, kind of a light brown sputum, kind of fluid. No back pain. No chest pain. No anosmia. No abdominal pain. Voiding without difficulty. Good strength in extremities. Cognitive function is preserved. 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 SOCIAL HISTORY: Lives in [place] with . Former smoker. Retired. ALLERGIES: CODEINE. MEDICATIONS: 1. Decadron. 2. Azithromycin. 3. Doxy. 4. Antihypertensives. 5. Enoxaparin. FAMILY HISTORY: COVID-19 in his . PHYSICAL EXAMINATION: VITAL SIGNS: T-max 102 on arrival. He has been afebrile since. On high-flow at 50, saturating actually 99 to 100. I had him do a brief exercise and it dropped to 96 at the most, it came right back up. HEENT: Ocular movements conjugate. Oral cavity moist. Still few teeth in place. NECK: Supple. LUNGS: Symmetric lung sounds. There are few scattered faint crackles at the bases. CARDIAC: S1 and S2, regular rate. No S3 or S4. ABDOMEN: Soft. Not distended or tender. No ascites. No bladder distention. EXTREMITIES: No joint inflammatory activity. Pulses 1+ in dorsalis pedis. No edema. NEUROLOGIC: Nonfocal including cognitive function. LABORATORY DATA: The latest white cell count 11.8, hemoglobin 13, platelets 359, 92% neutrophils. D-dimer is going up to 2.12 up to 10.88 now. PH 7.48, pCO2 is 35, PO2 is 53, O2 saturations were 89, this is on June 04. Chemistry, normal creatinine. Ferritin 2006. CRP at 3.65, which is markedly down from admission when it was 18. A CT with scattered ground-glass opacities, not very confluent, more concentrated on the left side. Most of the lung seems to be spared actually. ASSESSMENT: 1. Prior osteoarthrosis with left hip replacement and infection, treated. 2. Two weeks of COVID-19 now with quite a severe desaturation, but not a lot of inflammatory activity seen on CT scan. He does not desaturate much after exercise. His CECILE score is at 6.19 points, so we are going to have to repeat it daily to see where he is headed. So, there is a moderate risk for further deterioration, but the CRP is encouraging and the fact that his CT involvement is not as extensive as one sees in the patients that end up in the ICU intubated. He is not eligible for remdesivir and I am not going to change his regimen right now except for discontinuing azithromycin, which has been shown not to be effective. Job ID: [id number]
[2020-06-05] MEDS: Mometasone 200 MCG/Formoterol 5 MCG 120 PUFF INHALER INH SCH (19:53)
[2020-06-05] MEDS: Doxycycline 100 MG CAP PO SCH (19:57)
[2020-06-06 06:24] LABS: #Lymphocytes 0.5 thou/uL (1.20-3.40); #Monocytes 0.3 thou/uL (0.11-0.59); #Neutrophils 8.2 thou/uL (1.40-6.50); %Basophils 0.1 % (0.0-1.0); %Eosinophils 0.4 % (0.0-10.0); %Lymphocytes 5.4 % (21.0-51.0); %Neutrophils 91.2 % (42.0-75.0); Hemoglobin 12.7 g/dL (14.0-18.0); Mean Corpuscular HGB CONC 32.4 g/dL (32.0-36.0); Mean Corpuscular Hemoglobin 31.6 pg (27.0-31.0); Mean Corpuscular Volume 97.6 fL (78.0-98.0); Platelet Count 309 thou/uL (130-400); Red Blood Cell (RBC) Count 4.03 mill/uL (4.70-6.10)
[2020-06-06] MEDS: Mometasone 200 MCG/Formoterol 5 MCG 120 PUFF INHALER INH SCH ×2 (06:24→19:06)
[2020-06-06] MEDS: Amlodipine 10 MG TAB PO SCH (07:59)
[2020-06-06] MEDS: Carvedilol 25 MG TAB PO SCH ×2 (07:59→20:46)
[2020-06-06] MEDS: Benzonatate 100 MG CAP PO SCH ×3 (07:59→20:46)
[2020-06-06] MEDS: Ascorbic Acid 500 mg Chewable Tablet PO SCH (07:59)
[2020-06-06] MEDS: Zinc Sulfate 220 MG CAP PO SCH (07:59)
[2020-06-06] MEDS: Lisinopril 20 MG TAB PO SCH (07:59)
[2020-06-06] MEDS: Famotidine 20 MG TAB PO SCH ×2 (07:59→20:48)
[2020-06-06] MEDS: Multivit, Therapeutic 1 TAB PO SCH (07:59)
[2020-06-06] MEDS: Aspirin 81 mg Enteric Coated Tablet PO SCH (07:59)
[2020-06-06] MEDS: Dexamethasone 4 mg/ml Vial SLOW IVP SCH ×2 (08:00→20:47)
[2020-06-06] MEDS: Enoxaparin Sodium 40 MG/0.4 ML SYRINGE SC SCH ×2 (08:00→20:47)
[2020-06-06] MEDS: Cholecalciferol (Vitamin D3) 400 UNITS TAB PO SCH (08:02)
[2020-06-06] MEDS: Doxycycline 100 MG CAP PO SCH ×2 (08:15→20:47)
--- NOTE | 2020-06-06 11:36 | PRG ---
DATE OF SERVICE: 06/06/2020 SUBJECTIVE: This is a 74-year-old gentleman who is still on high-flow, but he is doing better. OBJECTIVE: VITAL SIGNS: Temperature 98.3, pulse 61, respirations 20, 70% FiO2, flow rate of 60, blood pressure 145/67. CHEST: No wheezing. No crackles. CARDIAC: Normal S1 and S2. No gallops. ABDOMEN: No masses. LABORATORY DATA: White count is unremarkable. IMPRESSION: Chris positive pneumonia; respiratory failure, on high-flow. PLAN: He is not a candidate for remdesivir or plasma. We will continue supportive care with high-dose steroids. Job ID: [id number]
--- NOTE | 2020-06-06 15:22 | PDOC.HOSPP ---
- Subjective Subjective: Pt is in prone position and tolerating it well. Pt was seen by ID and pul. appreciate input. no fever. - Objective Vital Signs & Weight: Vital Signs (12 hours) Temp Pulse Resp BP BP Pulse Ox 06/06/20 11:38 97.1 F L 20 144/70 H 93 L 06/06/20 09:03 98.4 F 61 20 145/67 H 93 L 06/06/20 08:00 93 L 06/06/20 05:00 52 L 20 95 Weight Weight 260 lb I&O: 06/05/20 06/06/20 06/07/20 06:59 06:59 06:59 Intake Total 1740 490 Output Total 1475 650 Balance 265 -160 Result Diagrams: 06/06/20 06:04 06/05/20 05:23 Radiology Reviewed by me: Yes Hospitalist ROS - Medication Medications: Active Medications Generic Name Dose Route Start Last Admin Trade Name Freq PRN Reason Stop Dose Admin Acetaminophen 650 mg 05/31/20 00:19 06/05/20 08:45 Acetaminophen 325 Mg Tab PO 650 mg Q4H PRN Administration Headache/Fever/Mild Pain (1-3) Amlodipine Besylate 10 mg 06/01/20 09:00 06/06/20 07:59 Amlodipine 10 Mg Tab PO 10 mg DAILY ADE Administration Ascorbic Acid 1,000 mg 05/31/20 09:00 06/06/20 07:59 Ascorbic Acid 500 Mg Chewable Tablet PO 1,000 mg DAILY ADE Administration Aspirin 81 mg 06/01/20 09:00 06/06/20 07:59 Aspirin 81 Mg Enteric Coated Tablet PO 81 mg DAILY ADE Administration Benzonatate 100 mg 06/03/20 15:00 06/06/20 07:59 Benzonatate 100 Mg Cap PO 100 mg TID ADE Administration Calcium Carbonate 1,000 mg 05/31/20 00:19 06/02/20 20:15 Calcium Carbonate 500 Mg Chewtab PO 1,000 mg Q4H PRN Administration Heartburn or Indigestion Carvedilol 25 mg 05/31/20 21:00 06/06/20 07:59 Carvedilol 25 Mg Tab PO 25 mg BID ADE Administration Cholecalciferol 400 units 05/31/20 09:00 06/06/20 08:02 Cholecalciferol (Vitamin D3) 400 Units Tab PO 400 units DAILY ADE Administration Dexamethasone 6 mg 06/05/20 21:00 06/06/20 08:00 Dexamethasone 4 Mg/Ml Vial SLOW IVP 6 mg BID ADE Administration Doxycycline Hyclate 100 mg 06/05/20 21:00 06/06/20 08:15 Doxycycline 100 Mg Cap PO 06/15/20 21:01 100 mg BID ADE Administration Enoxaparin Sodium 40 mg 06/05/20 21:00 06/06/20 08:00 Enoxaparin Sodium 40 Mg/0.4 Ml Syringe SC 40 mg BID ADE Administration Famotidine 20 mg 06/04/20 21:00 06/06/20 07:59 Famotidine 20 Mg Tab PO 20 mg BID ADE Administration Lisinopril 40 mg 06/01/20 09:00 06/06/20 07:59 Lisinopril 20 Mg Tab PO 40 mg DAILY ADE Administration Mometasone Furoate/Formoterol Fumar 2 puff 06/05/20 18:30 06/06/20 06:24 Mometasone 200 Mcg/Formoterol 5 Mcg 120 Puff Inhaler INH 2 puff BID-RT ADE Administration Multivitamins 1 tab 06/01/20 09:00 06/06/20 07:59 Multivit, Therapeutic 1 Tab PO 1 tab DAILY ADE Administration Zinc Sulfate 220 mg 05/31/20 09:00 06/06/20 07:59 Zinc Sulfate 220 Mg Cap PO 220 mg DAILY ADE Administration - Exam General Appearance: NAD Eye: PERRL ENT: normocephalic atraumatic Neck: supple Heart: RRR Respiratory: rhonchi Gastrointestinal: soft Extremities: no cyanosis Skin: normal turgor Neurological: cranial nerve grossly intact Musculoskeletal: normal tone Psychiatric: normal affect, normal behavior, A&O x 3 Hosp A/P - Plan Patient is a pleasant 74 years old gentleman who has significant past medical history of hypertension, who was tested positive for Covid 19 on 05/29/2020, which was few days after onset of symptoms. Acute hypoxic respiratory failure secondary to COVID-19 pneumonia --Patient remains on high flow, able to wean off some today --Patient was out of window for remdesivir/convalescent plasma given onset of symptoms. Decadron has been increased to twice daily by pulmonology. Continue vitamin C/D/zinc --Doxy added by pulmonology --cont supportive cares. --Appreciate ID/Pul input COVID-19 pneumonia --Management as above. Wean O2 as tolerated Hypertension, essential --BP stable continue home meds Right Thyroid Nodule: Incidental finding on CTA chest --Follow-up US which can be done as outpatient DVT ppx: Lovenox GI ppx: Pepcid Code Status: Full code Anticipated Dispo: Home when medically stable
--- NOTE | 2020-06-06 17:50 | PRG ---
DATE OF SERVICE: 06/06/2020 SUBJECTIVE: Lying on his right lateral decubitus. He is quite tachypneic at 32. He sat about 3 hours today by the bedside. He is able to eat. No abdominal pain. Voiding without difficulty. OBJECTIVE: VITAL SIGNS: He is on 60 high-flow and saturating at 97% right now. LUNGS: Scattered inspiratory crackles. HEART: S1 and S2. Regular rate. ABDOMEN: Moderately protuberant, but not tender. LABORATORY DATA: White cell count 9.0, hemoglobin 12.7, platelets 309 with 91% neutrophils. D-dimer 10.88. Ferritin 2006. CRP is down to 3.65. MEDICATIONS: He is on basically: 1. Decadron. 2. Doxycycline. ASSESSMENT AND DISCUSSION: Prior osteoarthrosis of left hip with replacement and infection treated, 2 weeks of COVID-19, severe desaturation on high-flow at 60. CRP is getting better, but his CECILE score is down to 4.46, which is really heading in the wrong direction here and the patient unfortunately is at high risk of further respiratory failure and ended up having to be intubated as we have experienced it with these patients. Job ID: [id number]
[2020-06-07] MEDS: Mometasone 200 MCG/Formoterol 5 MCG 120 PUFF INHALER INH SCH ×2 (06:20→20:14)
[2020-06-07 06:27] LABS: #Lymphocytes 0.5 thou/uL (1.20-3.40); #Monocytes 0.2 thou/uL (0.11-0.59); #Neutrophils 9.6 thou/uL (1.40-6.50); %Eosinophils 0.4 % (0.0-10.0); %Lymphocytes 4.4 % (21.0-51.0); %Monocytes 2.3 % (0.0-10.0); %Neutrophils 92.9 % (42.0-75.0); Hemoglobin 12.6 g/dL (14.0-18.0); Mean Corpuscular HGB CONC 32.9 g/dL (32.0-36.0); Mean Corpuscular Volume 97.3 fL (78.0-98.0); Mean Platelet Volume 8.2 fL (7.4-10.4); Platelet Count 329 thou/uL (130-400); RBC Distribution Width 12.9 % (11.5-14.5); Red Blood Cell (RBC) Count 3.94 mill/uL (4.70-6.10); White Blood Cell (WBC) Count 10.3 thou/uL (4.8-10.8)
[2020-06-07 06:54] LABS: Anion Gap 13 mmol/L (10-20); BUN (Urea Nitrogen) 31 mg/dL (8.4-25.7); CRP (Inflammatory) 2.69 mg/dL (= or < 0.5); Calc. Creatinine Clearance 144 mL/min (70-130); Calcium 8.7 mg/dL (7.8-10.44); Carbon Dioxide 25 mmol/L (23-31); Chloride 107 mmol/L (98-107); Glucose 204 mg/dL (83-110); Potassium 4.6 mmol/L (3.5-5.1); Sodium 140 mmol/L (136-145)
[2020-06-07] MEDS: Enoxaparin Sodium 40 MG/0.4 ML SYRINGE SC SCH ×2 (07:59→20:14)
[2020-06-07] MEDS: Amlodipine 10 MG TAB PO SCH (08:00)
[2020-06-07] MEDS: Carvedilol 25 MG TAB PO SCH ×2 (08:00→20:15)
[2020-06-07] MEDS: Famotidine 20 MG TAB PO SCH ×2 (08:00→20:15)
[2020-06-07] MEDS: Aspirin 81 mg Enteric Coated Tablet PO SCH (08:00)
[2020-06-07] MEDS: Lisinopril 20 MG TAB PO SCH (08:00)
[2020-06-07] MEDS: Cholecalciferol (Vitamin D3) 400 UNITS TAB PO SCH (08:00)
[2020-06-07] MEDS: Doxycycline 100 MG CAP PO SCH ×2 (08:00→20:15)
[2020-06-07] MEDS: Ascorbic Acid 500 mg Chewable Tablet PO SCH (08:00)
[2020-06-07] MEDS: Dexamethasone 4 mg/ml Vial SLOW IVP SCH ×2 (08:01→20:15)
[2020-06-07] MEDS: Benzonatate 100 MG CAP PO SCH ×3 (08:01→20:15)
[2020-06-07] MEDS: Multivit, Therapeutic 1 TAB PO SCH (08:01)
[2020-06-07] MEDS: Zinc Sulfate 220 MG CAP PO SCH (11:00)
--- NOTE | 2020-06-07 12:30 | PRG ---
DATE OF SERVICE: SUBJECTIVE: Kenny Wiggins is a 74-year-old gentleman. OBJECTIVE: VITAL SIGNS: Still on high-flow 69% FiO2, sats are 97% blood pressure 150/73. CHEST: No wheezing. No crackles. CARDIAC: Normal S1 and S2. No gallops. ABDOMEN: No masses. LABORATORY DATA: C-reactive protein down to 6.9. ASSESSMENT AND PLAN: Chris positive pneumonia, respiratory failure, empiric antibiotics, Decadron. We will follow. Job ID: [id number]
--- NOTE | 2020-06-07 16:38 | PRG ---
DATE OF SERVICE: 06/07/2020 SUBJECTIVE: Feeling better, is sitting by the bedside. Apparently spend 3 hours in a prone position. No abdominal pain. No diarrhea. OBJECTIVE: VITAL SIGNS: He is breathing 20 times a minute, saturating 100%, 60 L high-flow. GENERAL: Looks much better today. LUNGS: With symmetric inspiratory crackles. HEART: S1 and S2, regular rate. ABDOMEN: Soft. NEURO: Nonfocal. LABORATORY DATA: White cell count 10.3, hemoglobin 12.6. D-dimer has not been repeated. Ferritin is down to 1450. CRP down to 2.69. ASSESSMENT AND DISCUSSION: Osteoarthrosis, left hip replacement, infection treated, 2 weeks of COVID-19, better today with better saturations and respiratory rate is down. His CECILE score has improved to 7.25. Looks like it has turned around since yesterday, but again this disease just does not let go and we will have to continue following closely. Job ID: [id number]
--- NOTE | 2020-06-07 16:40 | PDOC.HOSPP ---
- Subjective Subjective: Patient was seen examined at bedside. Patient stated he is breathing better. He has been prone himself, and also tries to sleep on his sides. His CRP is trending down. No fever. - Objective Vital Signs & Weight: Vital Signs (12 hours) Temp Pulse Resp BP BP Pulse Ox 06/07/20 08:00 97.9 F 52 L 20 162/104 H 151/73 H 97 06/07/20 05:00 60 24 H 95 Weight Weight 260 lb I&O: 06/06/20 06/07/20 06/08/20 06:59 06:59 06:59 Intake Total 490 850 480 Output Total 650 1300 Balance -160 -450 480 Result Diagrams: 06/07/20 05:44 06/07/20 05:44 Radiology Reviewed by me: Yes EKG Reviewed by me: Yes Hospitalist ROS - Medication Medications: Active Medications Generic Name Dose Route Start Last Admin Trade Name Freq PRN Reason Stop Dose Admin Acetaminophen 650 mg 05/31/20 00:19 06/05/20 08:45 Acetaminophen 325 Mg Tab PO 650 mg Q4H PRN Administration Headache/Fever/Mild Pain (1-3) Amlodipine Besylate 10 mg 06/01/20 09:00 06/07/20 08:00 Amlodipine 10 Mg Tab PO 10 mg DAILY ADE Administration Ascorbic Acid 1,000 mg 05/31/20 09:00 06/07/20 08:00 Ascorbic Acid 500 Mg Chewable Tablet PO 1,000 mg DAILY ADE Administration Aspirin 81 mg 06/01/20 09:00 06/07/20 08:00 Aspirin 81 Mg Enteric Coated Tablet PO 81 mg DAILY ADE Administration Benzonatate 100 mg 06/03/20 15:00 06/07/20 14:55 Benzonatate 100 Mg Cap PO 100 mg TID ADE Administration Calcium Carbonate 1,000 mg 05/31/20 00:19 06/02/20 20:15 Calcium Carbonate 500 Mg Chewtab PO 1,000 mg Q4H PRN Administration Heartburn or Indigestion Carvedilol 25 mg 05/31/20 21:00 06/07/20 08:00 Carvedilol 25 Mg Tab PO 25 mg BID ADE Administration Cholecalciferol 400 units 05/31/20 09:00 06/07/20 08:00 Cholecalciferol (Vitamin D3) 400 Units Tab PO 400 units DAILY ADE Administration Dexamethasone 6 mg 06/05/20 21:00 06/07/20 08:01 Dexamethasone 4 Mg/Ml Vial SLOW IVP 6 mg BID ADE Administration Doxycycline Hyclate 100 mg 06/05/20 21:00 06/07/20 08:00 Doxycycline 100 Mg Cap PO 06/15/20 21:01 100 mg BID ADE Administration Enoxaparin Sodium 40 mg 06/05/20 21:00 06/07/20 07:59 Enoxaparin Sodium 40 Mg/0.4 Ml Syringe SC 40 mg BID ADE Administration Famotidine 20 mg 06/04/20 21:00 06/07/20 08:00 Famotidine 20 Mg Tab PO 20 mg BID ADE Administration Lisinopril 40 mg 06/01/20 09:00 06/07/20 08:00 Lisinopril 20 Mg Tab PO 40 mg DAILY ADE Administration Mometasone Furoate/Formoterol Fumar 2 puff 06/05/20 18:30 06/07/20 06:20 Mometasone 200 Mcg/Formoterol 5 Mcg 120 Puff Inhaler INH 2 puff BID-RT ADE Administration Multivitamins 1 tab 06/01/20 09:00 06/07/20 08:01 Multivit, Therapeutic 1 Tab PO 1 tab DAILY ADE Administration Zinc Sulfate 220 mg 05/31/20 09:00 06/07/20 11:00 Zinc Sulfate 220 Mg Cap PO 220 mg DAILY ADE Administration - Exam General Appearance: NAD Eye: PERRL ENT: normocephalic atraumatic Neck: supple Heart: RRR, no murmur Respiratory: rhonchi Gastrointestinal: soft Extremities: no cyanosis Skin: normal turgor Neurological: cranial nerve grossly intact Musculoskeletal: normal tone Psychiatric: normal affect, normal behavior, A&O x 3 Hosp A/P - Plan Patient is a pleasant 74 years old gentleman who has significant past medical history of hypertension, who was tested positive for Covid 19 on 05/29/2020, which was few days after onset of symptoms. Acute hypoxic respiratory failure secondary to COVID-19 pneumonia --Patient remains on high flow, able to wean off some today --Patient was out of window for remdesivir/convalescent plasma given onset of symptoms. Decadron has been increased to twice daily by pulmonology. Continue vitamin C/D/zinc --Doxy added by pulmonology --cont supportive cares. --Appreciate ID/Pul input --inflammatory markers are trending down. COVID-19 pneumonia --Management as above. Wean O2 as tolerated Hypertension, essential --BP stable continue home meds Right Thyroid Nodule: Incidental finding on CTA chest --Follow-up US which can be done as outpatient DVT ppx: Lovenox GI ppx: Pepcid Code Status: Full code Anticipated Dispo: Home when medically stable
[2020-06-08] MEDS: Acetaminophen 325 MG TAB PO PRN (00:47)
[2020-06-08] MEDS: Mometasone 200 MCG/Formoterol 5 MCG 120 PUFF INHALER INH SCH ×2 (06:15→17:53)
[2020-06-08 07:03] LABS: #Basophils 0.1 thou/uL (0.0-0.2); #Lymphocytes 0.3 thou/uL (1.20-3.40); #Monocytes 0.2 thou/uL (0.11-0.59); #Neutrophils 9.4 thou/uL (1.40-6.50); %Basophils 1.3 % (0.0-1.0); %Eosinophils 0.3 % (0.0-10.0); %Lymphocytes 2.8 % (21.0-51.0); %Monocytes 2.2 % (0.0-10.0); %Neutrophils 93.5 % (42.0-75.0); Hemoglobin 12.6 g/dL (14.0-18.0); Mean Corpuscular HGB CONC 33.8 g/dL (32.0-36.0); Mean Corpuscular Hemoglobin 32.9 pg (27.0-31.0); Mean Corpuscular Volume 97.2 fL (78.0-98.0); Mean Platelet Volume 8.6 fL (7.4-10.4); Platelet Count 304 thou/uL (130-400); RBC Distribution Width 12.9 % (11.5-14.5); Red Blood Cell (RBC) Count 3.84 mill/uL (4.70-6.10)
[2020-06-08 07:31] LABS: Anion Gap 14 mmol/L (10-20); BUN (Urea Nitrogen) 32 mg/dL (8.4-25.7); CRP (Inflammatory) 1.34 mg/dL (= or < 0.5); Calc. Creatinine Clearance 141 mL/min (70-130); Calcium 8.5 mg/dL (7.8-10.44); Carbon Dioxide 23 mmol/L (23-31); Chloride 105 mmol/L (98-107); Glucose 245 mg/dL (83-110); Potassium 4.6 mmol/L (3.5-5.1); Sodium 137 mmol/L (136-145)
[2020-06-08] MEDS: Carvedilol 25 MG TAB PO SCH ×2 (07:47→20:19)
[2020-06-08] MEDS: Ascorbic Acid 500 mg Chewable Tablet PO SCH (07:47)
[2020-06-08] MEDS: Amlodipine 10 MG TAB PO SCH (07:47)
[2020-06-08] MEDS: Lisinopril 20 MG TAB PO SCH (07:48)
[2020-06-08] MEDS: Famotidine 20 MG TAB PO SCH ×2 (07:48→20:22)
[2020-06-08] MEDS: Cholecalciferol (Vitamin D3) 400 UNITS TAB PO SCH (07:48)
[2020-06-08] MEDS: Aspirin 81 mg Enteric Coated Tablet PO SCH (07:48)
[2020-06-08] MEDS: Multivit, Therapeutic 1 TAB PO SCH (07:48)
[2020-06-08] MEDS: Benzonatate 100 MG CAP PO SCH ×3 (07:48→20:19)
[2020-06-08] MEDS: Doxycycline 100 MG CAP PO SCH ×2 (07:48→20:21)
[2020-06-08] MEDS: Dexamethasone 4 mg/ml Vial SLOW IVP SCH ×2 (07:50→20:20)
[2020-06-08] MEDS: Enoxaparin Sodium 40 MG/0.4 ML SYRINGE SC SCH ×2 (07:51→20:22)
--- NOTE | 2020-06-08 09:04 | RAD ---
PORTABLE CHEST: HISTORY: Followup of COVID pneumonia. COMPARISON: 06/04/2020 exam. FINDINGS: The heart size is within normal limits. Bilateral lung infiltrates show some slight improvement to t he right-sided infiltrate. IMPRESSION: Slight improvement to the right-sided infiltrative lung change. POS: [facility]
--- NOTE | 2020-06-08 11:32 | PRG ---
DATE OF SERVICE: 06/08/2020 OBJECTIVE: VITAL SIGNS: Temperature 97, pulse 51, blood pressure 150/70, sats are 99% on high-flow. CHEST: Decreased breath sounds. No wheezing. CARDIAC: Normal S1, S2. No gallops. ABDOMEN: No masses. LABORATORY DATA: Unremarkable . Chest x-ray, interstitial markings bilaterally. ASSESSMENT: Respiratory failure, galvin positive pneumonia. PLAN: I told to decrease the FiO2 down to keep his sat 91% to 92%, slowly better maybe. He is encouraged to sleep on his stomach. Job ID: [id number]
[2020-06-08] MEDS: Zinc Sulfate 220 MG CAP PO SCH (15:02)
--- NOTE | 2020-06-08 16:56 | PDOC.HOSPP ---
- Subjective Subjective: Examined at bedside. He appeared to be comfortable on high flow at current setting. He is out of bed to chair. Stated his breathing is better. No fever. His CRP continues to trend down. Still not able to wean at this point. - Objective Vital Signs & Weight: Vital Signs (12 hours) Temp Pulse Resp BP BP Pulse Ox 06/08/20 08:00 97.5 F L 51 L 20 157/74 H 99 06/08/20 07:48 162/104 H 06/08/20 07:47 58 L 06/08/20 05:33 99 Weight Weight 260 lb I&O: 06/07/20 06/08/20 06/09/20 06:59 06:59 06:59 Intake Total 850 720 600 Output Total 1300 Balance -450 720 600 Result Diagrams: 06/08/20 06:07 06/08/20 06:07 Hospitalist ROS - Medication Medications: Active Medications Generic Name Dose Route Start Last Admin Trade Name Freq PRN Reason Stop Dose Admin Acetaminophen 650 mg 05/31/20 00:19 06/08/20 00:47 Acetaminophen 325 Mg Tab PO 650 mg Q4H PRN Administration Headache/Fever/Mild Pain (1-3) Amlodipine Besylate 10 mg 06/01/20 09:00 06/08/20 07:47 Amlodipine 10 Mg Tab PO 10 mg DAILY ADE Administration Ascorbic Acid 1,000 mg 05/31/20 09:00 06/08/20 07:47 Ascorbic Acid 500 Mg Chewable Tablet PO 1,000 mg DAILY ADE Administration Aspirin 81 mg 06/01/20 09:00 06/08/20 07:48 Aspirin 81 Mg Enteric Coated Tablet PO 81 mg DAILY ADE Administration Benzonatate 100 mg 06/03/20 15:00 06/08/20 15:01 Benzonatate 100 Mg Cap PO 100 mg TID ADE Administration Calcium Carbonate 1,000 mg 05/31/20 00:19 06/02/20 20:15 Calcium Carbonate 500 Mg Chewtab PO 1,000 mg Q4H PRN Administration Heartburn or Indigestion Carvedilol 25 mg 05/31/20 21:00 06/08/20 07:47 Carvedilol 25 Mg Tab PO 25 mg BID ADE Administration Cholecalciferol 400 units 05/31/20 09:00 06/08/20 07:48 Cholecalciferol (Vitamin D3) 400 Units Tab PO 400 units DAILY ADE Administration Dexamethasone 6 mg 06/05/20 21:00 06/08/20 07:50 Dexamethasone 4 Mg/Ml Vial SLOW IVP 6 mg BID ADE Administration Doxycycline Hyclate 100 mg 06/05/20 21:00 06/08/20 07:48 Doxycycline 100 Mg Cap PO 06/15/20 21:01 100 mg BID ADE Administration Enoxaparin Sodium 40 mg 06/05/20 21:00 06/08/20 07:51 Enoxaparin Sodium 40 Mg/0.4 Ml Syringe SC 40 mg BID ADE Administration Famotidine 20 mg 06/04/20 21:00 06/08/20 07:48 Famotidine 20 Mg Tab PO 20 mg BID ADE Administration Lisinopril 40 mg 06/01/20 09:00 06/08/20 07:48 Lisinopril 20 Mg Tab PO 40 mg DAILY ADE Administration Mometasone Furoate/Formoterol Fumar 2 puff 06/05/20 18:30 06/08/20 06:15 Mometasone 200 Mcg/Formoterol 5 Mcg 120 Puff Inhaler INH 2 puff BID-RT ADE Administration Multivitamins 1 tab 06/01/20 09:00 06/08/20 07:48 Multivit, Therapeutic 1 Tab PO 1 tab DAILY ADE Administration Zinc Sulfate 220 mg 05/31/20 09:00 06/08/20 15:02 Zinc Sulfate 220 Mg Cap PO Not Given DAILY ADE - Exam General Appearance: NAD Eye: PERRL ENT: normocephalic atraumatic Neck: supple Heart: RRR Respiratory: CTAB Gastrointestinal: soft, non-tender Extremities: no cyanosis, no clubbing Skin: normal turgor Neurological: cranial nerve grossly intact Musculoskeletal: normal tone Hosp A/P - Plan Patient is a pleasant 74 years old gentleman who has significant past medical history of hypertension, who was tested positive for Covid 19 on 05/29/2020, which was few days after onset of symptoms. Acute hypoxic respiratory failure secondary to COVID-19 pneumonia --Patient remains on high flow, stable. cont to wean as vee --Patient was out of window for remdesivir/convalescent plasma given onset of symptoms. Decadron has been increased to twice daily by pulmonology. Continue vitamin C/D/zinc --Doxy added by pulmonology --cont supportive cares. --Appreciate ID/Pul input --inflammatory markers are trending down. COVID-19 pneumonia --Management as above. Wean O2 as tolerated Hypertension, essential --BP stable continue home meds Right Thyroid Nodule: Incidental finding on CTA chest --Follow-up US which can be done as outpatient DVT ppx: Lovenox GI ppx: Pepcid Code Status: Full code Anticipated Dispo: Home when medically stable
[2020-06-09] MEDS: Mometasone 200 MCG/Formoterol 5 MCG 120 PUFF INHALER INH SCH ×2 (05:48→17:57)
[2020-06-09 06:34] LABS: #Basophils 0.1 thou/uL (0.0-0.2); #Lymphocytes 0.4 thou/uL (1.20-3.40); #Monocytes 0.2 thou/uL (0.11-0.59); #Neutrophils 7.7 thou/uL (1.40-6.50); %Basophils 0.9 % (0.0-1.0); %Eosinophils 0.4 % (0.0-10.0); %Lymphocytes 4.8 % (21.0-51.0); %Monocytes 2.4 % (0.0-10.0); %Neutrophils 91.6 % (42.0-75.0); Hemoglobin 12.7 g/dL (14.0-18.0); Mean Corpuscular HGB CONC 33.4 g/dL (32.0-36.0); Mean Corpuscular Hemoglobin 32.6 pg (27.0-31.0); Mean Corpuscular Volume 97.5 fL (78.0-98.0); Mean Platelet Volume 8.7 fL (7.4-10.4); Platelet Count 288 thou/uL (130-400); RBC Distribution Width 12.8 % (11.5-14.5); Red Blood Cell (RBC) Count 3.91 mill/uL (4.70-6.10); White Blood Cell (WBC) Count 8.4 thou/uL (4.8-10.8)
[2020-06-09 06:52] LABS: Anion Gap 13 mmol/L (10-20); BUN (Urea Nitrogen) 30 mg/dL (8.4-25.7); CRP (Inflammatory) 0.77 mg/dL (= or < 0.5); Calc. Creatinine Clearance 134 mL/min (70-130); Calcium 8.6 mg/dL (7.8-10.44); Carbon Dioxide 23 mmol/L (23-31); Chloride 104 mmol/L (98-107); Glucose 309 mg/dL (83-110); Potassium 4.5 mmol/L (3.5-5.1); Sodium 135 mmol/L (136-145)
[2020-06-09] MEDS: Enoxaparin Sodium 40 MG/0.4 ML SYRINGE SC SCH ×2 (07:55→21:05)
[2020-06-09] MEDS: Ascorbic Acid 500 mg Chewable Tablet PO SCH (07:56)
[2020-06-09] MEDS: Zinc Sulfate 220 MG CAP PO SCH (07:56)
[2020-06-09] MEDS: Carvedilol 25 MG TAB PO SCH ×2 (07:56→21:02)
[2020-06-09] MEDS: Doxycycline 100 MG CAP PO SCH ×2 (07:56→21:05)
[2020-06-09] MEDS: Aspirin 81 mg Enteric Coated Tablet PO SCH (07:56)
[2020-06-09] MEDS: Amlodipine 10 MG TAB PO SCH (07:56)
[2020-06-09] MEDS: Famotidine 20 MG TAB PO SCH ×2 (07:56→21:05)
[2020-06-09] MEDS: Cholecalciferol (Vitamin D3) 400 UNITS TAB PO SCH (07:56)
[2020-06-09] MEDS: Benzonatate 100 MG CAP PO SCH ×3 (07:57→21:02)
[2020-06-09] MEDS: Lisinopril 20 MG TAB PO SCH (07:57)
[2020-06-09] MEDS: Multivit, Therapeutic 1 TAB PO SCH (07:57)
[2020-06-09] MEDS: Dexamethasone 4 mg/ml Vial SLOW IVP SCH ×2 (08:00→21:04)
[2020-06-09] MEDS: Acetaminophen 325 MG TAB PO PRN (08:49)
--- NOTE | 2020-06-09 11:20 | PRG ---
DATE OF SERVICE: OBJECTIVE: Temperature 97, pulse 60, respirations blood pressure . They are in the process of decreasing the flow rate. CHEST: No wheezing. No crackles. CARDIAC: Normal S1, S2. ABDOMEN: No masses felt. IMPRESSION: Chris positive pneumonia, respiratory failure, slowly improving. PLAN: Downsize to nasal O2. He could be discharged home hopefully. Otherwise, supportive care. X-ray looks relatively stable. Job ID: [id number]
--- NOTE | 2020-06-09 16:45 | PDOC.HOSPP ---
- Subjective Subjective: Feeling better today, out of bed to chair, probably able to wean down further on hiflo. CRP is normalizing. no fever. - Objective Vital Signs & Weight: Vital Signs (12 hours) Temp Pulse Resp BP BP Pulse Ox 06/09/20 08:40 97.9 F 61 20 162/76 H 96 06/09/20 08:00 96 06/09/20 07:57 162/104 H 06/09/20 07:56 56 L 06/09/20 05:00 56 L 22 H 94 L Weight Admit Weight 260 lb Weight 260 lb I&O: 06/08/20 06/09/20 06/10/20 06:59 06:59 06:59 Intake Total 720 1450 600 Output Total 600 Balance 720 850 600 Result Diagrams: 06/09/20 06:05 06/09/20 06:05 Hospitalist ROS - Medication Medications: Active Medications Generic Name Dose Route Start Last Admin Trade Name Freq PRN Reason Stop Dose Admin Acetaminophen 650 mg 05/31/20 00:19 06/09/20 08:49 Acetaminophen 325 Mg Tab PO 650 mg Q4H PRN Administration Headache/Fever/Mild Pain (1-3) Amlodipine Besylate 10 mg 06/01/20 09:00 06/09/20 07:56 Amlodipine 10 Mg Tab PO 10 mg DAILY ADE Administration Ascorbic Acid 1,000 mg 05/31/20 09:00 06/09/20 07:56 Ascorbic Acid 500 Mg Chewable Tablet PO 1,000 mg DAILY ADE Administration Aspirin 81 mg 06/01/20 09:00 06/09/20 07:56 Aspirin 81 Mg Enteric Coated Tablet PO 81 mg DAILY ADE Administration Benzonatate 100 mg 06/03/20 15:00 06/09/20 15:01 Benzonatate 100 Mg Cap PO 100 mg TID ADE Administration Calcium Carbonate 1,000 mg 05/31/20 00:19 06/02/20 20:15 Calcium Carbonate 500 Mg Chewtab PO 1,000 mg Q4H PRN Administration Heartburn or Indigestion Carvedilol 25 mg 05/31/20 21:00 06/09/20 07:56 Carvedilol 25 Mg Tab PO 25 mg BID ADE Administration Cholecalciferol 400 units 05/31/20 09:00 06/09/20 07:56 Cholecalciferol (Vitamin D3) 400 Units Tab PO 400 units DAILY ADE Administration Dexamethasone 6 mg 06/05/20 21:00 06/09/20 08:00 Dexamethasone 4 Mg/Ml Vial SLOW IVP 6 mg BID ADE Administration Doxycycline Hyclate 100 mg 06/05/20 21:00 06/09/20 07:56 Doxycycline 100 Mg Cap PO 06/15/20 21:01 100 mg BID ADE Administration Enoxaparin Sodium 40 mg 06/05/20 21:00 06/09/20 07:55 Enoxaparin Sodium 40 Mg/0.4 Ml Syringe SC 40 mg BID ADE Administration Famotidine 20 mg 06/04/20 21:00 06/09/20 07:56 Famotidine 20 Mg Tab PO 20 mg BID ADE Administration Lisinopril 40 mg 06/01/20 09:00 06/09/20 07:57 Lisinopril 20 Mg Tab PO 40 mg DAILY ADE Administration Mometasone Furoate/Formoterol Fumar 2 puff 06/05/20 18:30 06/09/20 05:48 Mometasone 200 Mcg/Formoterol 5 Mcg 120 Puff Inhaler INH 2 puff BID-RT ADE Administration Multivitamins 1 tab 06/01/20 09:00 06/09/20 07:57 Multivit, Therapeutic 1 Tab PO 1 tab DAILY ADE Administration Zinc Sulfate 220 mg 05/31/20 09:00 06/09/20 07:56 Zinc Sulfate 220 Mg Cap PO 220 mg DAILY ADE Administration - Exam General Appearance: NAD Eye: PERRL ENT: normocephalic atraumatic Neck: supple Heart: RRR Respiratory: CTAB, no wheezes Gastrointestinal: soft, non-tender Extremities: no cyanosis, no clubbing Skin: normal turgor Hosp A/P - Plan Patient is a pleasant 74 years old gentleman who has significant past medical history of hypertension, who was tested positive for Covid 19 on 05/29/2020, which was few days after onset of symptoms. Acute hypoxic respiratory failure secondary to COVID-19 pneumonia --Patient remains on high flow, probably able to wean down further today. --Patient was out of window for remdesivir/convalescent plasma given onset of symptoms. Decadron has been increased to twice daily by pulmonology. Continue vitamin C/D/zinc --Doxy added by pulmonology --cont supportive cares. --Appreciate ID/Pul input --inflammatory markers are trending down. COVID-19 pneumonia --Management as above. Wean O2 as tolerated Hypertension, essential --BP stable continue home meds Right Thyroid Nodule: Incidental finding on CTA chest --Follow-up US which can be done as outpatient DVT ppx: Lovenox GI ppx: Pepcid Code Status: Full code Anticipated Dispo: Home when medically stable
[2020-06-10] MEDS: Acetaminophen 325 MG TAB PO PRN (00:56)
[2020-06-10 06:22] LABS: #Lymphocytes 0.5 thou/uL (1.20-3.40); #Monocytes 0.2 thou/uL (0.11-0.59); #Neutrophils 9.3 thou/uL (1.40-6.50); %Eosinophils 0.5 % (0.0-10.0); %Lymphocytes 4.8 % (21.0-51.0); %Monocytes 2.4 % (0.0-10.0); %Neutrophils 92.3 % (42.0-75.0); Hemoglobin 13.5 g/dL (14.0-18.0); Mean Corpuscular HGB CONC 34.5 g/dL (32.0-36.0); Mean Corpuscular Hemoglobin 33.2 pg (27.0-31.0); Mean Corpuscular Volume 96.2 fL (78.0-98.0); Mean Platelet Volume 8.7 fL (7.4-10.4); Platelet Count 312 thou/uL (130-400); RBC Distribution Width 12.8 % (11.5-14.5); Red Blood Cell (RBC) Count 4.06 mill/uL (4.70-6.10); White Blood Cell (WBC) Count 10.1 thou/uL (4.8-10.8)
[2020-06-10] MEDS: Mometasone 200 MCG/Formoterol 5 MCG 120 PUFF INHALER INH SCH ×2 (06:23→18:17)
[2020-06-10 06:42] LABS: Anion Gap 13 mmol/L (10-20); BUN (Urea Nitrogen) 34 mg/dL (8.4-25.7); CRP (Inflammatory) Less than 0.50 mg/dL (= or < 0.5); Calc. Creatinine Clearance 111 mL/min (70-130); Calcium 8.8 mg/dL (7.8-10.44); Carbon Dioxide 23 mmol/L (23-31); Chloride 104 mmol/L (98-107); Glucose 340 mg/dL (83-110); Potassium 5.1 mmol/L (3.5-5.1); Sodium 135 mmol/L (136-145)
[2020-06-10] MEDS: Famotidine 20 MG TAB PO SCH ×2 (09:35→20:38)
[2020-06-10] MEDS: Benzonatate 100 MG CAP PO SCH ×3 (09:35→20:38)
[2020-06-10] MEDS: Aspirin 81 mg Enteric Coated Tablet PO SCH (09:35)
[2020-06-10] MEDS: Doxycycline 100 MG CAP PO SCH ×2 (09:35→20:40)
[2020-06-10] MEDS: Multivit, Therapeutic 1 TAB PO SCH (09:35)
[2020-06-10] MEDS: Amlodipine 10 MG TAB PO SCH (09:35)
[2020-06-10] MEDS: Ascorbic Acid 500 mg Chewable Tablet PO SCH (09:35)
[2020-06-10] MEDS: Cholecalciferol (Vitamin D3) 400 UNITS TAB PO SCH (09:35)
[2020-06-10] MEDS: Dexamethasone 4 mg/ml Vial SLOW IVP SCH (09:36)
[2020-06-10] MEDS: Carvedilol 25 MG TAB PO SCH ×2 (09:36→20:38)
[2020-06-10] MEDS: Enoxaparin Sodium 40 MG/0.4 ML SYRINGE SC SCH ×2 (09:36→20:37)
[2020-06-10] MEDS: Zinc Sulfate 220 MG CAP PO SCH (09:36)
[2020-06-10] MEDS: Lisinopril 20 MG TAB PO SCH (09:36)
--- NOTE | 2020-06-10 10:06 | PRG ---
DATE OF SERVICE: 06/10/2020 OBJECTIVE: VITAL SIGNS: This morning, temperature 99, pulse 79, respirations 20, saturations are 94% on 4 L, blood pressure 136/75. LUNGS: No wheezing. No crackles. CARDIAC: Normal S1 and S2. No gallops. ABDOMEN: No masses. ASSESSMENT: Respiratory failure; galvin positive pneumonia, slowly improving; probably switch over to oral prednisone in the next day or two to be tapered over 2 weeks. We will follow. Job ID: [id number]
--- NOTE | 2020-06-10 17:04 | PDOC.HOSPP ---
- Subjective Subjective: Patient was seen examined at bedside. He has been responded quite well with therapy. His oxygen had weaned down from high flow to nasal cannula, 4 L continuous. He is satting well and is feeling better. I have discussed with pulmonology, patient is stable to discharge if he is home O2 is arranged. He will be discharged home with prolonged taper steroid over 2 weeks, along with DVT prophylaxis such as Eliquis low-dose 2.5 mg twice daily for over 2-4 weeks. lead project manager was consulted to arrange home O2. Patient is aware that he potentially can go home later today if home oxygen is arranged. - Objective Vital Signs & Weight: Vital Signs (12 hours) Temp Pulse Resp BP Pulse Ox 06/10/20 11:45 56 L 20 98 06/10/20 09:30 60 22 H 94 L 06/10/20 08:00 98.5 F 79 20 131/75 92 L Weight Admit Weight 260 lb Weight 260 lb I&O: 06/09/20 06/10/20 06/11/20 06:59 06:59 06:59 Intake Total 1450 1450 Output Total 600 700 Balance 850 750 Result Diagrams: 06/10/20 05:29 06/10/20 05:29 Radiology Reviewed by me: Yes EKG Reviewed by me: Yes Hospitalist ROS - Medication Medications: Active Medications Generic Name Dose Route Start Last Admin Trade Name Freq PRN Reason Stop Dose Admin Acetaminophen 650 mg 05/31/20 00:19 06/10/20 00:56 Acetaminophen 325 Mg Tab PO 650 mg Q4H PRN Administration Headache/Fever/Mild Pain (1-3) Amlodipine Besylate 10 mg 06/01/20 09:00 06/10/20 09:35 Amlodipine 10 Mg Tab PO 10 mg DAILY ADE Administration Ascorbic Acid 1,000 mg 05/31/20 09:00 06/10/20 09:35 Ascorbic Acid 500 Mg Chewable Tablet PO 1,000 mg DAILY ADE Administration Aspirin 81 mg 06/01/20 09:00 06/10/20 09:35 Aspirin 81 Mg Enteric Coated Tablet PO 81 mg DAILY ADE Administration Benzonatate 100 mg 06/03/20 15:00 06/10/20 15:34 Benzonatate 100 Mg Cap PO 100 mg TID ADE Administration Calcium Carbonate 1,000 mg 05/31/20 00:19 12/31/20 20:15 Calcium Carbonate 500 Mg Chewtab PO 1,000 mg Q4H PRN Administration Heartburn or Indigestion Carvedilol 25 mg 05/31/20 21:00 06/10/20 09:36 Carvedilol 25 Mg Tab PO 25 mg BID ADE Administration Cholecalciferol 400 units 05/31/20 09:00 06/10/20 09:35 Cholecalciferol (Vitamin D3) 400 Units Tab PO 400 units DAILY ADE Administration Dexamethasone 6 mg 06/05/20 21:00 06/10/20 09:36 Dexamethasone 4 Mg/Ml Vial SLOW IVP 6 mg BID ADE Administration Doxycycline Hyclate 100 mg 06/05/20 21:00 06/10/20 09:35 Doxycycline 100 Mg Cap PO 06/15/20 21:01 100 mg BID ADE Administration Enoxaparin Sodium 40 mg 06/05/20 21:00 06/10/20 09:36 Enoxaparin Sodium 40 Mg/0.4 Ml Syringe SC 40 mg BID ADE Administration Famotidine 20 mg 06/04/20 21:00 06/10/20 09:35 Famotidine 20 Mg Tab PO 20 mg BID ADE Administration Lisinopril 40 mg 06/01/20 09:00 06/10/20 09:36 Lisinopril 20 Mg Tab PO 40 mg DAILY ADE Administration Mometasone Furoate/Formoterol Fumar 2 puff 06/05/20 18:30 06/10/20 06:23 Mometasone 200 Mcg/Formoterol 5 Mcg 120 Puff Inhaler INH 2 puff BID-RT ADE Administration Multivitamins 1 tab 06/01/20 09:00 06/10/20 09:35 Multivit, Therapeutic 1 Tab PO 1 tab DAILY ADE Administration Sodium Chloride 0 ml 06/04/20 10:23 06/10/20 03:35 Sodium Chloride 0.65% Nasal 44 Ml Bot EA NARE 1 spr TID PRN Administration Nasal Congestion Zinc Sulfate 220 mg 05/31/20 09:00 06/10/20 09:36 Zinc Sulfate 220 Mg Cap PO 220 mg DAILY ADE Administration - Exam General Appearance: NAD Eye: PERRL ENT: normocephalic atraumatic Neck: supple Heart: RRR Respiratory: rhonchi Gastrointestinal: soft Extremities: no cyanosis Skin: normal turgor Neurological: cranial nerve grossly intact Musculoskeletal: normal tone Psychiatric: normal affect, normal behavior, A&O x 3 Hosp A/P - Plan Patient is a pleasant 74 years old gentleman who has significant past medical history of hypertension, who was tested positive for Covid 19 on 05/29/2020, which was few days after onset of symptoms. Acute hypoxic respiratory failure secondary to COVID-19 pneumonia --significant improvement in last few days, now down to 4L via nc. feeling better --Patient was out of window for remdesivir/convalescent plasma given onset of symptoms. --Continue vitamin C/D/zinc --change Decadron to PO daily, cont PO doxy --d/w Pul, potentially home later today if home O2 arranged. Home with taper steroid x 2 weeks, and DVT ppx such as Eliquis 2.5 mg BID x 1 month COVID-19 pneumonia --Management as above. Wean O2 as tolerated Hypertension, essential --BP stable continue home meds Right Thyroid Nodule: Incidental finding on CTA chest --Follow-up US which can be done as outpatient DVT ppx: Lovenox GI ppx: Pepcid Code Status: Full code Anticipated Dispo: Home when medically stable
[2020-06-11] MEDS: Mometasone 200 MCG/Formoterol 5 MCG 120 PUFF INHALER INH SCH (06:16)
[2020-06-11] MEDS ORDERED: Dexamethasone 4 MG TAB PO SCH (08:00)
[2020-06-11 08:11] LABS: #Lymphocytes 0.7 thou/uL (1.20-3.40); #Monocytes 0.6 thou/uL (0.11-0.59); #Neutrophils 10.1 thou/uL (1.40-6.50); %Basophils 0.2 % (0.0-1.0); %Eosinophils 0.3 % (0.0-10.0); %Lymphocytes 5.8 % (21.0-51.0); %Neutrophils 88.8 % (42.0-75.0); Hemoglobin 13.8 g/dL (14.0-18.0); Mean Corpuscular HGB CONC 33.6 g/dL (32.0-36.0); Mean Corpuscular Hemoglobin 32.7 pg (27.0-31.0); Mean Corpuscular Volume 97.1 fL (78.0-98.0); Mean Platelet Volume 8.6 fL (7.4-10.4); Platelet Count 296 thou/uL (130-400); RBC Distribution Width 12.8 % (11.5-14.5); Red Blood Cell (RBC) Count 4.23 mill/uL (4.70-6.10); White Blood Cell (WBC) Count 11.4 thou/uL (4.8-10.8)
[2020-06-11 08:22] VITALS: BP 154/84; TEMP 97.5
[2020-06-11 08:25] LABS: ALT (SGPT) 20 U/L (8-55); AST (SGOT) 9 U/L (5-34); Albumin 2.9 g/dL (3.4-4.8); Alkaline Phosphatase 75 U/L (40-110); Anion Gap 14 mmol/L (10-20); BUN (Urea Nitrogen) 38 mg/dL (8.4-25.7); Bilirubin, Total 0.4 mg/dL (0.2-1.2); Calc. Creatinine Clearance 126 mL/min (70-130); Calcium 8.9 mg/dL (7.8-10.44); Carbon Dioxide 23 mmol/L (23-31); Chloride 106 mmol/L (98-107); Globulin 2.8 g/dL (2.4-3.5); Glucose 318 mg/dL (83-110); Potassium 4.5 mmol/L (3.5-5.1); Protein, Total 5.7 g/dL (5.8-8.1); Sodium 138 mmol/L (136-145)
[2020-06-11] MEDS: Enoxaparin Sodium 40 MG/0.4 ML SYRINGE SC SCH (09:00)
[2020-06-11] MEDS: Zinc Sulfate 220 MG CAP PO SCH (09:01)
[2020-06-11] MEDS: Carvedilol 25 MG TAB PO SCH (09:01)
[2020-06-11] MEDS: Cholecalciferol (Vitamin D3) 400 UNITS TAB PO SCH (09:01)
[2020-06-11] MEDS: Benzonatate 100 MG CAP PO SCH (09:01)
[2020-06-11] MEDS: Aspirin 81 mg Enteric Coated Tablet PO SCH (09:01)
[2020-06-11] MEDS: Doxycycline 100 MG CAP PO SCH (09:01)
[2020-06-11] MEDS: Amlodipine 10 MG TAB PO SCH (09:01)
[2020-06-11] MEDS: Lisinopril 20 MG TAB PO SCH (09:01)
[2020-06-11] MEDS: Famotidine 20 MG TAB PO SCH (09:01)
[2020-06-11] MEDS: Multivit, Therapeutic 1 TAB PO SCH (09:01)
[2020-06-11] MEDS: Ascorbic Acid 500 mg Chewable Tablet PO SCH (09:01)
--- NOTE | 2020-06-11 11:46 | DIS ---
DATE OF ADMISSION: 05/30/2020 DATE OF DISCHARGE: 06/11/2020 MEDICATIONS: Reconciled at discharge, New medications, 1. Tylenol 650 mg every 4 hours as needed. 2. Albuterol 2 puffs every 4 hours as needed for wheezing or shortness of breath. 3. Apixaban 2.5 mg p.o. b.i.d. for 1 month only. 4. Vitamin C 1000 mg daily. 5. Doxycycline 100 mg b.i.d. for 4 days. 6. Famotidine 20 mg p.o. b.i.d. while on steroids. 7. Dulera 200/5 two puffs twice daily for a month. 8. Prednisone 10 mg tablets 3 tablets daily for 4 days, then 2 tablets daily for 4 days, then 1 tablet daily for 4 days. 9. Metformin 500 mg p.o. daily. Medications to resume, 1. Norvasc 10 mg daily. 2. Aspirin 81 mg daily. 3. Carvedilol 25 mg p.o. b.i.d. 4. Lisinopril 40 mg daily. 5. Multivitamin daily. Medications discontinued or changed: None. FINAL DIAGNOSES: 1. Acute respiratory failure with hypoxia secondary to COVID pneumonia. 2. Elevated blood sugars. 3. COVID-19 pneumonia. 4. Hypertension. 5. Right thyroid nodule, needs followup as an outpatient. SECONDARY DIAGNOSES: 1. Hypoalbuminemia. 2. Tobacco abuse. CONSULTANTS: Pulmonology. HISTORY OF PRESENT ILLNESS: Mr. Wiggins is a 74-year-old male with history of hypertension, who presented to the emergency room the day after COVID diagnosis due to worsening symptoms. He complained of cough, shortness of breath, and was found to have a pulse ox of 89%. He was admitted for further evaluation. HOSPITAL COURSE: The patient has been managed with supplemental oxygen, followed by Pulmonology. He has been on inhaler therapy. He was out of the window for remdesivir and convalescent plasma per review of the hospital notes here. He has been managed on steroids that have been tapered down and he will be discharged per the recommendation of Pulmonology on a 2-week course. He will also continue doxycycline per Pulmonology's recommendations through June 15. In addition, due to the increased risk of hypercoagulable state with COVID, it is recommended that he is on Eliquis for 1 month to help lower this risk. The patient has overall improved, he is currently on 4 L of nasal cannula, and this has been arranged for him to use at home. He has been hemodynamically stable through this hospitalization and continued on his usual antihypertensive medications. He does have elevated blood sugars here, up into the 300s over the past few days. I am starting him on metformin at least for a month, he is encouraged to have a carbohydrate-consistent diet. In addition, the patient does use snuff and he is encouraged to discontinue this. PHYSICAL EXAMINATION: VITAL SIGNS: Blood pressure 154/84, temperature 97.5, pulse 57, respirations 20, sat 95% on 4 L nasal cannula. GENERAL: Awake, alert, responsive, not in apparent distress, able to answer questions without difficulty. LUNGS: Diminished breath sounds at the bases bilateral. No audible wheezing, rhonchi, or rales. HEART: Normal S1 and S2. Regular rate and rhythm. No significant murmur. ABDOMEN: Soft with present bowel sounds, nontender, and nondistended. EXTREMITIES: Trace pitting edema bilateral (the patient reports this is chronic). AMBROSE FINDINGS AND TEST RESULTS: CBC today 11.4, 13.8, 41.1, and 296. D-dimer last checked on June 05, it was 10.88. Chemistry; today, 138, 4.5, 106, 23, 38, 0.87, 318. Calcium 8.9. Ferritin level 1884, last checked yesterday. CRP less than 0.5, last checked yesterday. T-bilirubin 0.4, AST 9, ALT 20, alkaline phosphatase 75, total protein 5.7, albumin 2.9. Chest x-ray on June 08 shows slight improvement to right-sided infiltrate of lung change. Chest x-ray on June 04, slight interval progression of patchy bilateral infiltrates. Venogram, June 04, normal exam, bilateral lower extremities. CT angiogram on May 30, no evidence for PE, pulmonary parenchymal findings typical, but nonspecific for COVID pneumonia and right thyroid nodule. Ultrasound followup recommended. Chest x-ray on May 30, findings suspicious for bilateral COVID pneumonia. FOLLOWUP: With the primary care provider. The followup is needed for oxygen to determine how much and when to lower the oxygen levels, for a thyroid gland ultrasound, this is to follow up the thyroid nodule that was found on CT scan, and for blood sugars as they are elevated here and the patient is started on metformin. The patient does need teaching when it comes to blood sugars, monitoring to determine if this is a new diagnosis of diabetes or simply related to the steroids. Reviewed with the patient this hospitalization, the medications he is being discharged with, the importance of followup, and the seek care precautions. He demonstrates understanding, and does agree with discharge to home. DISCHARGE DISPOSITION: Home. CODE STATUS: Full. OXYGEN LEVEL: At 4 L. TIME SPENT: Total time coordinating discharge is 45 minutes. Job ID: [id number]
== END 2020-06-11 12:44 | disposition home or self-care (01) | DRG 177 ==
LOC: ERS 16:22 → ERHOLD 22:43 → T4-A 05-31 04:30 → SURG A 05-31 12:57 → T4-A 05-31 12:58
PROVIDERS: ADMIT Internal Medicine; ATTEND Family Medicine
PROC: 8E0ZXY6 Isolation (ICD-10-PCS; principal; 2020-05-30)
DX: U07.1 COVID-19 (principal); J12.82 Pneumonia due to coronavirus disease 2019; J96.01 Acute respiratory failure with hypoxia; I10 Essential (primary) hypertension; E04.1 Nontoxic single thyroid nodule; E88.09 Other disorders of plasma-protein metabolism, not elsewhere classified; F17.210 Nicotine dependence, cigarettes, uncomplicated; R73.9 Hyperglycemia, unspecified; Z96.642 Presence of left artificial hip joint; E66.01 Morbid (severe) obesity due to excess calories; Z88.5 Allergy status to narcotic agent; Z79.899 Other long term (current) drug therapy; Z68.34 Body mass index [BMI] 34.0-34.9, adult
CPT/HCPCS: 36415; 36600; 71045; 71275; 80048; 80053; 80076; 82728; 82805; 83605; 83735; 83880; 84484; 85007; 85025; 85027; 85379; 86140; 93005; 93970; J0456; J1100; J1650; J7050; J8540; Q0162; Q9967

== ENCOUNTER 2020-07-07 09:58 | Outpatient (CLI) | payer MEDICARE, OTHER ==
--- NOTE | 2020-07-07 11:10 | RAD ---
2 VIEW CHEST: Date: 07/07/2020 HISTORY: Dyspnea. COMPARISON: Portable chest of 06/08/2020. FINDINGS: Bilateral infiltrates have progressed when compared to prior portable exam. There are now diffuse int erstitial and hazy somewhat patchy alveolar infiltrates seen throughout both lungs with alveolar dens ities more prominent in the lung bases. Borderline cardiomegaly and mild vascular engorgement is stab le. IMPRESSION: Progression of bilateral interstitial and patchy alveolar infiltrates. POS: AGW
== END 2020-07-07 09:59 | disposition home or self-care (01) ==
LOC: BICRAD 09:58
PROVIDERS: ATTEND Internal Medicine Pulmonary Disease
DX: R06.00 Dyspnea, unspecified (principal); R91.8 Other nonspecific abnormal finding of lung field
CPT/HCPCS: 71046

== ENCOUNTER 2020-10-05 10:07 | Outpatient (CLI) | payer MEDICARE, OTHER | END 2020-10-05 10:08 | disposition home or self-care (01) | LOC: BICRAD 10:07 | PROVIDERS: ATTEND Internal Medicine Pulmonary Disease | DX: R06.00 Dyspnea, unspecified (principal) | CPT/HCPCS: 71046 ==

== ENCOUNTER 2023-12-04 06:23 | Day surgery (SDC) | payer MEDICARE, OTHER ==
[2023-12-02 10:08] VITALS: BMI 29.0
[2023-12-04 07:30] LABS: #Basophils Less than 0.03 10x3/uL (0.0-0.2); #Eosinphils Less than 0.03 10x3/uL (0.0-0.7); %Basophils 0.1 % (0.0-1.0); %Eosinophils 0.2 % (0.0-10.0); %Lymphocytes 7.2 % (21.0-51.0); %Monocytes 4.3 % (0.0-10.0); %Neutrophils 86.8 % (42.0-75.0); Hematocrit 41.4 % (42.0-52.0); Hemoglobin 13.8 g/dL (14.0-18.0); Mean Corpuscular HGB CONC 33.3 g/dL (32.0-36.0); Mean Corpuscular Hemoglobin 31.5 pg (27.0-31.0); Mean Corpuscular Volume 94.5 fL (78.0-98.0); Platelet Count 173 10x3/uL (130-400); RBC Distribution Width 14.7 % (11.5-14.5); Red Blood Cell (RBC) Count 4.38 mill/uL (4.70-6.10)
[2023-12-04] MEDS ORDERED: PROPOFOL 20 ML ONE (07:44)
[2023-12-04] MEDS ORDERED: fentaNYL PF 100 MCG/2 ML SYRINGE ONE (07:44)
[2023-12-04] MEDS ORDERED: Lidocaine 1% PF 5 ML VIAL ONE (07:45)
[2023-12-04] MEDS ORDERED: Rocuronium Bromide 10 MG/ML (10ML VIAL) ONE (07:45)
[2023-12-04 08:04] LABS: Anion Gap 14 mmol/L (10-20); BUN (Urea Nitrogen) 28 mg/dL (8.4-25.7); Calc. Creatinine Clearance 87 mL/min (70-130); Calcium 10.5 mg/dL (7.8-10.44); Carbon Dioxide 19 mmol/L (23-31); Chloride 111 mmol/L (98-107); Estimated GFR 78; Glucose 128 mg/dL (83-110); Potassium 4.4 mmol/L (3.5-5.1); Sodium 140 mmol/L (136-145)
[2023-12-04] MEDS ORDERED: EPINEPHrine 1 MG/ML VIAL ONE (08:25)
[2023-12-04] MEDS ORDERED: Thrombin 5000 UNITS/5 ML VIAL ONE (08:25)
[2023-12-04] MEDS ORDERED: Bupivacaine PF 0.5% 30 ML VIAL ONE (08:25)
[2023-12-04] MEDS ORDERED: Sodium Chloride 0.9% 100 ML ONE ×2 (09:00→13:49)
[2023-12-04] MEDS ORDERED: CEFAZOLIN 2 GM VIAL ONE ×2 (09:00→13:49)
[2023-12-04] MEDS ORDERED: Ondansetron PF 4 MG/2 ML Vial ONE (09:36)
[2023-12-04] MEDS ORDERED: Dexamethasone 20 MG/5 ML VIAL ONE (09:36)
[2023-12-04] MEDS ORDERED: ePHEDrine Sulfate 50 MG/10 ML VIAL ONE (09:58)
[2023-12-04] MEDS ORDERED: Ketorolac Tromethamine 30 MG (1 mL) VIAL ONE (10:12)
[2023-12-04] MEDS ORDERED: SUGAMMADEX SODIUM 200 MG/2 ML VIAL ONE (10:22)
[2023-12-04] MEDS ORDERED: HYDROmorphone 2 MG/ML VIAL ONE (10:26)
[2023-12-04] MEDS ORDERED: fentaNYL 50 mcg/mL 1 mL Vial ONE ×3 (10:50→11:33)
[2023-12-04] MEDS ORDERED: Tamsulosin HCl 0.4 MG CAP ONE (12:58)
[2023-12-04] MEDS ORDERED: HYDROcodone/Acetaminophen 5/325 mg Tablet ONE (13:17)
== END 2023-12-04 14:20 | disposition home or self-care (01) ==
LOC: SDC 06:23
PROVIDERS: ATTEND Neurological Surgery
PROC: 01NB0ZZ Release Lumbar Nerve, Open Approach (ICD-10-PCS; principal; 2023-12-04)
PROC: 01NR0ZZ Release Sacral Nerve, Open Approach (ICD-10-PCS; 2023-12-04)
DX: M54.16 Radiculopathy, lumbar region (principal); I10 Essential (primary) hypertension; Z87.891 Personal history of nicotine dependence; Z79.899 Other long term (current) drug therapy; Z96.642 Presence of left artificial hip joint; Z88.5 Allergy status to narcotic agent
CPT/HCPCS: 63047; 63048; 80048; 85025; J0171; J0665; J1100; J1170; J1885; J2405; J2704; J3010; J3490; 93005; 93010